=== PATIENT | female | born 1995 | race Caucasian/White ===

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

== ENCOUNTER 2017-02-23 | Emergency (ER) | payer MEDICAID, OTHER ==
[~2017-02-23] VITALS: Ht 170.2 cm; Wt 50.0 kg
[2017-02-23 00:08] VITALS: BP 135/89; PULSE 99; RESP 18; TEMP 98.2; O2SAT 98
[2017-02-23] MEDS ORDERED: DEPO150I IM (00:15)
--- NOTE | 2017-02-23 00:25 | PD ---
HPI Chief Complaint: Psychiatric Symptoms Time Seen by Provider: 00:17 Travel History International Travel<30 days: No Contact w/Intl Traveler<30days: No Traveled to known affect area: No History of Present Illness HPI 21-year-old female was brought to the ED for psychiatric evaluation. Patient has history depression and suicidal. Patient was presented to [facility] in [facility]. Patient had blood tests, including CBC, CMP, UA, urine test, urine drug screen done at that facility. Patient was medically cleared for psychiatric evaluation. Patient was transferred to [facility] ED to see psychiatric screener. Patient has abrasions to both forearms from suicidal gestures. Patient otherwise had no complaint. [facility] Past Medical History Medical History: Denies Significant Hx Diminished Hearing: No Immunizations Current: No Tetanus Vaccination: < 5 Years Influenza Vaccination: Yes ?: Not Past Surgical History Surgical History: No Previous Surgery Social History Alcohol Use: Yes (3 beers and three shots last night) Tobacco Use: No Substance Use: Yes Allergies-Medications (Allergen,Severity, Reaction): Coded Allergies: No Known Allergies (Unverified , 02/23/17) Reported Meds & Prescriptions Reported Meds & Active Scripts Active Reported Depo-Provera Inj (Medroxyprogesterone Inj) 150 Mg/Ml Inj 150 Mg IM Q90D Review of Systems General / Constitutional: No: Fever Eyes: No: Visual changes HENT: No: Headaches Cardiovascular: No: Chest Pain or Discomfort Respiratory: No: Shortness of Breath Gastrointestinal: No: Abdominal Pain Genitourinary: No: Dysuria Musculoskeletal: No: Pain Skin: No Rash Neurologic: No: Weakness Psychiatric: No: Depression Endocrine: No: Polydipsia Hematologic/Lymphatic: No: Easy Bruising Physical Exam Narrative GENERAL: Well-nourished, well-developed patient. SKIN: Focused skin assessment warm/dry. HEAD: Normocephalic. EYES: No scleral icterus. No injection or drainage. NECK: Supple, trachea midline. No JVD or lymphadenopathy. CARDIOVASCULAR: Regular rate and rhythm without murmurs, gallops, or rubs. RESPIRATORY: Breath sounds equal bilaterally. No accessory muscle use. GASTROINTESTINAL: Abdomen soft, non-tender, nondistended. MUSCULOSKELETAL: No cyanosis, or edema. Multiple superficial abrasions to both forearms. No active bleeding. BACK: Nontender without obvious deformity. No CVA tenderness. Neurologic exam normal. Data Data Last Documented VS Vital Signs Date Time Temp Pulse Resp B/P (MAP) Pulse Ox O2 Delivery O2 Flow Rate FiO2 02/23/17 00:08 98.2 99 18 135/89 (104) 98 Orders Orders Psych Screen (02/23/17 00:17) MDM Medical Decision Making Medical Screen Exam Complete: Yes Emergency Medical Condition: Yes Differential Diagnosis Differential diagnosis including depression, suicidal. Narrative Course 21-year-old female with depression and suicidal gestures. Patient was medically cleared at [facility] and sent to [facility] for psychiatric evaluation. Chan Morales MD Feb 23, 2017 00:25
[2017-02-23 07:10] VITALS: BP 107/71; PULSE 83; RESP 17; TEMP 97.8; O2SAT 99
[2017-02-23 11:00] VITALS: BP 124/81; PULSE 76; RESP 16; TEMP 97.8; O2SAT 100
--- NOTE | 2017-02-23 15:22 | PD ---
History of Present Illness Chief Complaint: Psychiatric Symptoms Time Seen by Provider: 15:00 Travel History International Travel<30 Days: No Contact w/Intl Traveler<30days: No Known affected area: No Legal Status Legal Status: Jimenez Act History of Present Illness: 21-year-old female transferred to this facility for suicidal ideation and recent history of cutting self. Patient seen at bedside with nurse Lilibeth. She is currently denying any suicidal or homicidal ideation, plan or intent. She is verbally artemio for safety. She does abuse drugs and admits to same. She would like outpatient follow up and is willing to obtain it with assistance from her grandmother. She lives with her grandmother and she is able to return there. She has no psychotic symptoms and her cognition is intact. She is verbally artemio for safety and she is competent to do so. [facility] Past Medical History Medical History: Denies Significant Hx Diminished Hearing: No Immunizations Current: No Tetanus Vaccination: < 5 Years Influenza Vaccination: Yes ?: Not Past Surgical History Surgical History: No Previous Surgery Psychiatric History Psychiatric History Hx Psychiatric Treatment: None History of Inpatient Treatment: No Guns or firearms in home: No Social History Hx Alcohol Use: Yes (3 beers and three shots last night) Hx Tobacco Use: No Hx Substance Use: Yes Substance Use Type: Alcohol Hx of Substance Use Treatment: No Allergies-Medications (Allergen,Severity, Reaction): Coded Allergies: No Known Allergies (Unverified , 02/23/17) Reported Meds & Prescriptions Reported Meds & Active Scripts Active Reported Depo-Provera Inj (Medroxyprogesterone Inj) 150 Mg/Ml Inj 150 Mg IM Q90D Review of Systems Except as stated in HPI: all other systems reviewed are Neg Exam Alert: Yes [place]: Person, Place, Date, Situation Mood: Calm Affect: Appropriate, Euthymic Speech: Clear, Logical Eye Contact: Normal Memory Intact: Immediate, Recent, Remote Insight/Judgement Adequate MDM Medical Decision Making Medical Record Reviewed: Yes Assessment/Plan Record reviewed, case discussed with nurse and patient seen at bedside. This physician feels patient likely has strong elements of a personality disorder. She is therefore prone to acting out and may do so in the future and harmful ways. However this cannot be predicted or avoided if she chooses to do so. This physician referred her for treatment at [facility] and encouraged her to speak to her grandmother regarding such treatment. As the patient does not meet a correct criteria or involuntary psychiatric hospitalization criteria at this time, she was discharged. Again, she is verbally artemio for safety and she is competent to do so. Orders Orders Psych Screen (02/23/17 00:17) Diet Regular Basic (02/23/17 Breakfast) Results Vital Signs Date Time Temp Pulse Resp B/P (MAP) Pulse Ox O2 Delivery O2 Flow Rate FiO2 02/23/17 11:00 97.8 76 16 124/81 (95) 100 Room Air 02/23/17 07:10 97.8 83 17 107/71 (83) 99 Room Air 02/23/17 07:10 72 16 02/23/17 00:08 98.2 99 18 135/89 (104) 98 Diagnosis Primary Impression: Adjustment disorder with mixed disturbance of emotions and conduct Additional Impression: Cocaine abuse Problem Qualifiers Stuart Mackay MD Feb 23, 2017 15:22
[2017-02-23 15:58] VITALS: BP 110/78; TEMP 97.8
[2017-02-23] MEDS ORDERED: DIAZ5 PO (16:44)
[2017-02-23] MEDS ORDERED: FLUO20CA12 PO (16:44)
== END 2017-02-23 16:49 | disposition home or self-care (01) ==
LOC: NEPE
DX: F43.25 Adjustment disorder with mixed disturbance of emotions and conduct (principal); F14.10 Cocaine abuse, uncomplicated
CPT/HCPCS: 99284

== ENCOUNTER 2017-03-02 12:38 | Observation (INO) | payer MEDICAID, OTHER ==
[~2017-03-02] VITALS: Ht 167.6 cm; Wt 52.0 kg
[2017-03-02] VITALS (7 sets, daily range): BP systolic 92–151; BP diastolic 53–95; PULSE 72–98; RESP 16–20; TEMP 97.7–99.2; O2SAT 96–100
[~2017-03-02 12:38] MED LIST: DEPO150I IM; DIAZ5 PO; FLUO20CA12 PO
--- NOTE | 2017-03-02 12:51 | PD ---
HPI Chief Complaint: Seizure Time Seen by Provider: 12:51 Travel History International Travel<30 days: No Contact w/Intl Traveler<30days: No Traveled to known affect area: No History of Present Illness HPI 21-year-old female presents to emergency Department with reported seizure last evening which lasted reportedly approximate 5 minutes. At that time the patient was at a friend's house, and was then taken to her father's house. She is brought in today by her grandmother. Current complaints include headache, neck pain, but she does not remember the event. She denies fever, chills, or other symptoms. Patient admits that she was abusing Xanax up until one week ago. Patient was seen here a week ago as a Jimenez act for cutting behavior. At that time she was found to have amphetamines in her bloodstream. Patient relates a history of syncope versus seizure in the past approximate year ago, and states she was seen by a neurologist and had an EEG showing no seizure like activity, but was told it was "in her heart". Patient has no previous EKG on file here at [facility]. She currently is otherwise apparently stable. Patient denies or recent drug use. She states her headache pain as a 9 out of 10. She has no known drug allergies. PFSH Past Medical History Diminished Hearing: No Immunizations Current: No Social History Alcohol Use: Yes (3 beers and three shots last night) Tobacco Use: No Substance Use: Yes Allergies-Medications (Allergen,Severity, Reaction): Coded Allergies: No Known Allergies (Unverified , 03/02/17) Reported Meds & Prescriptions Reported Meds & Active Scripts Active Valium (Diazepam) 5 Mg Tab 5 Mg PO HS PRN Fluoxetine (Fluoxetine HCl) 20 Mg Capsule 20 Mg PO DAILY Reported Depo-Provera Inj (Medroxyprogesterone Inj) 150 Mg/Ml Inj 150 Mg IM Q90D Review of Systems Except as stated in HPI: all other systems reviewed are Neg General / Constitutional: No: Fever Eyes: No: Visual changes HENT: Positive: Headaches, No: Vertigo, Lightheadedness, Sore Throat, Rhinitis , Rhinorrhea, Congestion, Nosebleed, Neck Stiffness, Neck Pain, Ear Discharge, Earache Cardiovascular: No: Chest Pain or Discomfort Respiratory: No: Cough, Shortness of Breath, Wheezing Gastrointestinal: No: Nausea, Vomiting, Diarrhea, Abdominal Pain Genitourinary: No: Dysuria Musculoskeletal: No: Pain Skin: Positive Other (patient is noted to have multiple healing cut gary to both wrists. They are not acute.), No Rash Neurologic: Positive: Syncope, Headache, Seizures (see history of present illness.), No: Weakness Psychiatric: No: Depression Endocrine: No: Polydipsia Hematologic/Lymphatic: No: Easy Bruising Physical Exam Narrative GENERAL: Patient appears somewhat postictal, but is able to answer questions appropriately. She is alert and oriented 3. SKIN: Warm and dry. Normal color. Normal turgor. No obvious signs of acute trauma. Patient has healing superficial lacerations to both wrists. These are not acute. HEAD: Atraumatic. Normocephalic. No point tenderness. Patient complains of generalized headache. EYES: Pupils equal and round and reactive. No scleral icterus. No injection or drainage. Ocular motions are equal bilaterally. ENT: No nasal bleeding or discharge. Mucous membranes pink and moist. Pharynx is clear. Airway is patent. No signs of dental injury or buccal membrane or tongue injury. NECK: Trachea midline. No obvious bony tenderness or step-off. Patient has generalized soft tissue tenderness of the cervical spine. She is uncomfortable moving the cervical spine to return range of motion. CARDIOVASCULAR: Regular rate and rhythm. RESPIRATORY: No accessory muscle use. Clear to auscultation. Breath sounds equal bilaterally. GASTROINTESTINAL: Abdomen soft, non-tender, nondistended. Hepatic and splenic margins not palpable. MUSCULOSKELETAL: Extremities without clubbing, cyanosis, or edema. No obvious deformities. NEUROLOGICAL: Awake and alert. No obvious cranial nerve deficits. Motor grossly within normal limits. Five out of 5 muscle strength in the arms and legs. Normal speech. PSYCHIATRIC: Appropriate mood and affect; insight and judgment normal. Data Data Last Documented VS Vital Signs Date Time Temp Pulse Resp B/P (MAP) Pulse Ox O2 Delivery O2 Flow Rate FiO2 03/02/17 13:02 100 Room Air 03/02/17 12:42 97.7 98 17 Orders Orders Complete Blood Count With Diff (03/02/17 12:58) Alcohol (Ethanol) (03/02/17 12:58) Drug Screen, Random Urine (03/02/17 12:58) Electrocardiogram (03/02/17 ) Ct Brain W/O Iv Contrast(Rout) (03/02/17 ) Ecg Monitoring (03/02/17 12:58) Iv Access Insert/Monitor (03/02/17 12:58) Oximetry (03/02/17 12:58) Comprehensive Metabolic Panel (03/02/17 12:58) Sodium Chlor 0.9% 1000 Ml Inj (Ns 1000 M (03/02/17 12:58) Sodium Chloride 0.9% Flush (Ns Flush) (03/02/17 13:00) Urinalysis - C+S If Indicated (03/02/17 12:58) Ed Urine Pregnancytest Poc (03/02/17 12:58) Ct Cerv Spine W/O Contrast (03/02/17 12:58) Urine Culture (03/02/17 13:30) Ceftriaxone Inj (Rocephin Inj) (03/02/17 14:15) Labs Laboratory Tests Test 03/02/17 13:02 03/02/17 13:30 White Blood Count 5.3 TH/MM3 Red Blood Count 5.51 MIL/MM3 Hemoglobin 15.9 GM/DL Hematocrit 48.4 % Mean Corpuscular Volume 87.9 FL Mean Corpuscular Hemoglobin 28.8 PG Mean Corpuscular Hemoglobin Concent 32.8 % Red Cell Distribution Width 13.8 % Platelet Count 253 TH/MM3 Mean Platelet Volume 7.3 FL Neutrophils (%) (Auto) 47.1 % Lymphocytes (%) (Auto) 41.6 % Monocytes (%) (Auto) 9.7 % Eosinophils (%) (Auto) 0.9 % Basophils (%) (Auto) 0.7 % Neutrophils # (Auto) 2.5 TH/MM3 Lymphocytes # (Auto) 2.2 TH/MM3 Monocytes # (Auto) 0.5 TH/MM3 Eosinophils # (Auto) 0.0 TH/MM3 Basophils # (Auto) 0.0 TH/MM3 CBC Comment DIFF FINAL Differential Comment Blood Urea Nitrogen 9 MG/DL Creatinine 0.91 MG/DL Random Glucose 64 MG/DL Total Protein 8.1 GM/DL Albumin 4.2 GM/DL Calcium Level 8.8 MG/DL Alkaline Phosphatase 100 U/L Aspartate Amino Transf (AST/SGOT) 19 U/L Alanine Aminotransferase (ALT/SGPT) 19 U/L Total Bilirubin 0.3 MG/DL Sodium Level 141 MEQ/L Potassium Level 3.9 MEQ/L Chloride Level 109 MEQ/L Carbon Dioxide Level 22.8 MEQ/L Anion Gap 9 MEQ/L Estimat Glomerular Filtration Rate 80 ML/MIN Ethyl Alcohol Level 53 MG/DL Urine Color YELLOW Urine Turbidity HAZY Urine pH 6.0 Urine Specific [place] 1.029 Urine Protein 30 mg/dL Urine Glucose (UA) NEG mg/dL Urine Ketones TRACE mg/dL Urine Occult Blood SMALL Urine Nitrite NEG Urine Bilirubin NEG Urine Urobilinogen 2.0 MG/DL Urine Leukocyte Esterase MOD Urine RBC 1 /hpf Urine WBC 56 /hpf Urine Squamous Epithelial Cells 3 /hpf Urine Bacteria MANY /hpf Urine Mucus MANY /lpf Microscopic Urinalysis Comment CULTURE INDICATED Urine Opiates Screen NEG Urine Barbiturates Screen NEG Urine Amphetamines Screen NEG Urine Benzodiazepines Screen POS Urine Cocaine Screen NEG Urine Cannabinoids Screen POS MDM Medical Decision Making Medical Screen Exam Complete: Yes Emergency Medical Condition: Yes Differential Diagnosis Syncopal episode versus seizure. History of benzodiazepine abuse. Question cardiac arrhythmia issue. History adjustment disorder with anxiety. Possible drug abuse. Possible . Narrative Course Patient appears medically stable at time of exam. Labs ordered including CBC, CMP, urine drug screen, urine , urinalysis. CT of the head and neck are ordered. Patient is given thousand mL normal saline. EKG is ordered showing a rate of 89 beats per minute with what appears to be a junctional rhythm. Dr. 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 Patient's old EEG from [facility] is obtained showing no signs of seizure disorder at that time. CBC shows a hemoglobin of 15.9, hematocrit of 48.4. Urine tox screen is positive for benzodiazepines as well as cannabinoids. Serum alcohol is 53. Urinalysis is suggestive of urinary tract infection. Patient is given [address] of the head shows no acute process. CMP is unremarkable except for a chloride of 109, GFR 80, random glucose 64. EEG study from October 05, 2015 is obtained from [facility] showing a normal EEG without epileptiform abnormalities. Patient is discussed with Dr. Calderón's, and she recommends hospitalization to determine if the patient does indeed have WPW arrhythmias causing syncope. 1455 hrs. call was placed to the hospitalist for admission. Diagnosis Primary Impression: Cardiac arrhythmia Qualified Codes: I47.0 - Re-entry ventricular arrhythmia Additional Impression: Syncopal episodes Qualified Codes: R55 - Syncope and collapse Admitting Information Admitting Physician Requests: Admit Condition: Stable Jeovanny Merrill Mar 02, 2017 12:51
[2017-03-02] MEDS ORDERED: SODIUM CHLOR 0.9% 1000 ML INJ 1,000 ML IV ONE (12:58)
[2017-03-02] MEDS ORDERED: SODIUM CHLORIDE 0.9% FLUSH 10 ML FLUSH IVF PRN (13:00)
[2017-03-02 13:54] LABS: AUTOMATED NEUTROPHIL # 2.5 TH/MM3 (1.8-7.7); BASOPHIL % 0.7 % (0.0-2.0); EOSINOPHIL % 0.9 % (0.0-4.0); HEMATOCRIT 48.4 % (35.0-46.0); HEMO FLAGS DIFF FINAL; LYMPH % 41.6 % (9.0-44.0); LYMPHOCYTE # 2.2 TH/MM3 (1.0-4.8); MEAN CELL VOLUME 87.9 FL (80.0-100.0); MEAN CORPUSCULAR HEMOGLOBIN 28.8 PG (27.0-34.0); MEAN CORPUSCULAR HGB CONC 32.8 % (32.0-36.0); MONO % 9.7 % (0.0-8.0); NEUT % 47.1 % (16.0-70.0); PLATELET COUNT 253 TH/MM3 (150-450); RED BLOOD COUNT 5.51 MIL/MM3 (4.00-5.30); RED CELL DISTRIBUTION WIDTH 13.8 % (11.6-17.2); WHITE BLOOD COUNT 5.3 TH/MM3 (4.0-11.0)
[2017-03-02 14:07] LABS: BACTERIA, URINE MANY /hpf; BLOOD, URINE SMALL (NEG); COMMENT (UR) CULTURE INDICATED; CULTURE IF INDICATED CULTURE INDICATED; GLUCOSE,URINE NEG (NEG); KETONE, URINE TRACE mg/dL (NEG); MUCUS URINE MANY /lpf (OCC); NITRITE,URINE NEG (NEG); SQUAMOUS EPITHELIAL CELL URINE 3 /hpf (0-5); URINE COLOR YELLOW (YELLW/STRAW)
--- NOTE | 2017-03-02 14:13 | RADRPT ---
EXAM DATE/TIME: 03/02/2017 13:50 [facility] COMPARISON: No previous studies available for comparison. INDICATIONS : Trauma; seizure. RADIATION DOSE: 42.23 CTDIvol (mGy) MEDICAL HISTORY : Seizures. SURGICAL HISTORY : None. ENCOUNTER: Initial ACUITY: 1 day PAIN SCALE: 5/10 LOCATION: cranial TECHNIQUE: Multiple contiguous axial images were obtained of the head. Using automated exposure control and adj ustment of the mA and/or kV according to patient size, radiation dose was kept as low as reasonably a chievable to obtain optimal diagnostic quality images. DICOM format image data is available electro nically for review and comparison. FINDINGS: CEREBRUM: The ventricles are normal for age. No evidence of midline shift, mass lesion, hemorrhage or acute in farction. No extra-axial fluid collections are seen. POSTERIOR FOSSA: The cerebellum and brainstem are intact. The 4th ventricle is midline. The cerebellopontine angle i s unremarkable. EXTRACRANIAL: The visualized portion of the orbits is intact. SKULL: The calvaria is intact. No evidence of skull fracture. CONCLUSION: Negative for acute process. Shantanu Coombs MD FACR on March 02, 2017 at 14:09 Board Certified Radiologist. This report was verified electronically.
[2017-03-02] MEDS ORDERED: cefTRIAXone INJ 1,000 MG in SODIUM CHLORIDE 0.9% INJ 100 ML IV ONE (14:15)
--- NOTE | 2017-03-02 14:15 | RADRPT ---
EXAM DATE/TIME: 03/02/2017 13:50 [facility] COMPARISON: No previous studies available for comparison. INDICATIONS : Trauma; seizure. RADIATION DOSE: 26.05 CTDIvol (mGy) MEDICAL HISTORY : Seizures. SURGICAL HISTORY : None. ENCOUNTER: Initial ACUITY: 1 day PAIN SCALE: 5/10 LOCATION: Bilateral neck TECHNIQUE: Volumetric scanning of the cervical spine was performed. Multiplanar reconstructions in the sagittal, coronal and oblique axial planes were performed. Using automated exposure control and adjustment o f the mA and/or kV according to patient size, radiation dose was kept as low as reasonably achievable to obtain optimal diagnostic quality images. DICOM format image data is available electronically f or review and comparison. FINDINGS: VERTEBRAE: Normal vertebral body height. ALIGNMENT: Reversal of the normal lordosis. C2-C3: The bony spinal canal is normal in size. No evidence of disc bulge or herniation. The neural forami na are bilaterally patent. C3-C4: The bony spinal canal is normal in size. No evidence of disc bulge or herniation. The neural forami na are bilaterally patent. C4-C5: The bony spinal canal is normal in size. No evidence of disc bulge or herniation. The neural forami na are bilaterally patent. C5-C6: The bony spinal canal is normal in size. Minimal central to right-sided bulge.. The neural foramina are bilaterally patent. C6-C7: The bony spinal canal is normal in size. No evidence of disc bulge or herniation. The neural forami na are bilaterally patent. C7-T1: The bony spinal canal is normal in size. No evidence of disc bulge or herniation. The neural forami na are bilaterally patent. CONCLUSION: Reversal of the normal lordosis without fracture. Minimal right-sided bulge at C5-C6. Shantanu Coombs MD FACR on March 02, 2017 at 14:12 Board Certified Radiologist. This report was verified electronically.
[2017-03-02 14:24] LABS: ANION GAP 9 MEQ/L (5-15); AST (GOT) 19 U/L (16-38); BICARBONATE 22.8 MEQ/L (21.0-32.0); BLOOD UREA NITROGEN 9 MG/DL (7-18); CHLORIDE 109 MEQ/L (98-107); GLOMERULAR FILTRATION RATE 80 ML/MIN (>89); POTASSIUM 3.9 MEQ/L (3.5-5.1); SODIUM (NA) 141 MEQ/L (136-145)
[2017-03-02 14:25] LABS: ALT (GPT) 19 U/L (9-42)
[2017-03-02 14:26] LABS: ALCOHOL 53 MG/DL (0-5)
[2017-03-02 14:28] LABS: ALKALINE PHOSPHATASE 100 U/L (45-117); TOTAL BILIRUBIN ADULT 0.3 MG/DL (0.2-1.0)
[2017-03-02] MEDS ORDERED: ACETAMINOPHEN 325 MG TAB PO PRN ×2 (15:45)
[2017-03-02] MEDS ORDERED: SODIUM CHLORIDE 0.9% FLUSH 10 ML FLUSH IV FLUSH PRN (15:45)
[2017-03-02] MEDS ORDERED: HALOPERIDOL LACTATE 5 MG/ML AMP IM PRN (15:45)
[2017-03-02] MEDS ORDERED: ONDANSETRON HCL 4 MG/2 ML VIAL IVP PRN (15:45)
[2017-03-02] MEDS ORDERED: FLUMAZENIL 0.5 MG/5 ML VIAL IV PUSH PRN (15:45)
[2017-03-02] MEDS ORDERED: traMADol HCL 50 MG TAB PO PRN ×2 (15:45)
[2017-03-02] MEDS ORDERED: LORazepam 1 MG TAB PO PRN (15:45)
[2017-03-02] MEDS ORDERED: MORPHINE SULFATE 4 MG/ML INJ IV PRN (15:45)
[2017-03-02] MEDS ORDERED: LORazepam 2 MG/ML VIAL IV PUSH PRN ×4 (15:45)
[2017-03-02] MEDS ORDERED: LACTULOSE SYRUP 20 GM/30 ML CUP PO PRN (15:45)
[2017-03-02] MEDS ORDERED: DIAZEPAM 5 MG TAB PO PRN (15:45)
[2017-03-02] MEDS ORDERED: BISACODYL 10 MG SUPP RECTAL PRN (15:45)
[2017-03-02] MEDS ORDERED: PROCHLORPERAZINE 25 MG SUPP RECTAL PRN (15:45)
[2017-03-02] MEDS ORDERED: SENNOSIDES 8.6 MG TAB PO PRN (15:45)
[2017-03-02] MEDS ORDERED: LORazepam 2 MG TAB PO PRN (15:45)
[2017-03-02] MEDS ORDERED: NALOXONE HCL 0.4 MG/ML AMP IV PRN (15:45)
[2017-03-02] MEDS ORDERED: MAGNESIUM HYDROXIDE SUSP 30 ML CUP PO PRN (15:45)
[2017-03-02 16:04] LABS: CREATINE KINASE 116 U/L (26-192)
--- NOTE | 2017-03-02 16:05 | HHI.HP ---
[facility] Service [facility] Hospitalists Primary Care Physician No Primary Care Physician Admission Diagnosis Dysrythmia/syncope Diagnoses: (1) Drug abuse Diagnosis: Principal (2) Syncopal episodes Diagnosis: Principal (3) Cardiac arrhythmia Diagnosis: Principal (4) Adjustment disorder with anxiety Diagnosis: Secondary (5) Depression Diagnosis: Secondary (6) Seizure Diagnosis: Principal Chief Complaint: POSSIBLE SEIZURE VS SYNCOPAL EPISODE Travel History International Travel<30 Days: No Contact w/Intl Traveler <30 Da: No Traveled to Known Affected Are: No History of Present Illness 21-year-old female presents to emergency Department with reported seizure last evening which lasted reportedly approximate 5 minutes. At that time the patient was at a friend's house, and was then taken to her father's house. She is brought in today by her grandmother. Current complaints include headache, neck pain, but she does not remember the event. She denies fever, chills, or other symptoms. Patient admits that she was abusing Xanax up until one week ago. Patient was seen here a week ago as a Jimenez act for cutting behavior. At that time she was found to have amphetamines in her bloodstream. Patient relates a history of syncope versus seizure in the past approximate year ago, and states she was seen by a neurologist and had an EEG showing no seizure like activity, but was told it was "in her heart". Patient has no previous EKG on file here at [facility]. She currently is otherwise apparently stable. Patient denies or recent drug use. She states her headache pain as a 9 out of 10. She has no known drug allergies. Review of Systems Constitutional: DENIES: Diaphoretic episodes, Fatigue, Fever, Weight gain, Weight loss, Chills, Dizziness, Change in appetite Endocrine: DENIES: Abnorml menstrual pattern, Heat/cold intolerance Eyes: DENIES: Blurred vision, Diplopia, Eye inflammation, Eye pain, Vision loss , Photosensitivity Ears, nose, mouth, throat: DENIES: Tinnitus, Hearing loss, Vertigo, Nasal discharge, Oral lesions, Throat pain, Hoarseness Respiratory: DENIES: Apneas, Cough, Snoring, Wheezing, Hemoptysis Cardiovascular: COMPLAINS OF: Syncope, DENIES: Chest pain, Palpitations Gastrointestinal: DENIES: Abdominal pain, Black stools, Bloody stools, Constipation Genitourinary: DENIES: Abnormal vaginal bleeding, Dysmenorrhea, Dyspareunia, Sexual dysfunction, Vaginal discharge Musculoskeletal: DENIES: Joint pain, Muscle aches, Stiffness, Joint Swelling Integumentary: DENIES: Abnormal pigmentation, Pruritus, Rash Hematologic/lymphatic: DENIES: Bruising, Lymphadenopathy Immunologic/allergic: DENIES: Eczema, Urticaria Neurologic: COMPLAINS OF: Seizures, DENIES: Abnormal gait, Headache, Localized weakness, Paresthesias, Speech Problems Psychiatric: COMPLAINS OF: Anxiety, Mood changes, Depression, DENIES: Confusion , Hallucinations, Agitation, Suicidal Ideation Past Family Social History Past Medical History Possible seizures Possible syncope Drug abuse Depression Suicidal ideation/attempt Headaches Anxiety Past Surgical History Denies Reported Medications Reported Meds & Active Scripts Active Valium (Diazepam) 5 Mg Tab 5 Mg PO HS PRN Fluoxetine (Fluoxetine HCl) 20 Mg Capsule 20 Mg PO DAILY Reported Depo-Provera Inj (Medroxyprogesterone Inj) 150 Mg/Ml Inj 150 Mg IM Q90D Allergies: Coded Allergies: No Known Allergies (Unverified , 03/02/17) Active Ordered Medications Current Medications Sodium Chloride 1,000 ml @ 1,000 mls/hr Q1H ONCE IV Last administered on 13:14; Start 03/02/17 at 12:58; Stop 03/02/17 at 13:57; Status DC Sodium Chloride (NS Flush) 2 ml UNSCH PRN IVF FLUSH AFTER USING IV ACCESS; Start 03/02/17 at 13:00; Stop 03/02/17 at 15:51; Status DC Ceftriaxone Sodium 1000 mg/ Sodium Chloride 100 ml @ 200 mls/hr ONCE ONCE IV Last administered on 03/02/17 14:28; Start 03/02/17 at 14:15; Stop 03/02/17 at 14: 44; Status DC Sodium Chloride 1,000 ml @ 100 mls/hr Q10H IV ; Start 03/02/17 at 15:33 Sodium Chloride (NS Flush) 2 ml UNSCH PRN IV FLUSH FLUSH AFTER USING IV ACCESS ; Start 03/02/17 at 15:45 Sodium Chloride (NS Flush) 2 ml BID IV FLUSH ; Start 03/02/17 at 21:00 Acetaminophen (Tylenol) 650 mg Q4H PRN PO TEMP > 100.4; Start 03/02/17 at 15:45 Ondansetron HCl (Zofran Inj) 4 mg Q6H PRN IVP NAUSEA OR VOMITING; Start at 15:45 Prochlorperazine (Compazine Supp) 25 mg Q12H PRN RECTAL NAUSEA OR VOMITING; Start 03/02/17 at 15:45 Heparin Sodium (Porcine) (Heparin Inj) 5,000 units Q12H SQ ; Start 03/02/17 at 17 :00 Acetaminophen (Tylenol) 650 mg Q6H PRN PO PAIN SCALE 1 TO 2; Start 03/02/17 at 15:45 Morphine Sulfate (Morphine Inj) 4 mg Q3H PRN IV Pain 6-10;if unable to take PO ; Start 03/02/17 at 15:45 Tramadol HCl (Ultram) 50 mg Q4H PRN PO PAIN SCALE 3 TO 5; Start 03/02/17 at 15: 45 Tramadol HCl (Ultram) 100 mg Q4H PRN PO PAIN SCALE 6 TO 10; Start 03/02/17 at 15 :45 Naloxone HCl (Narcan Inj) 0.4 mg UNSCH PRN IV SEE LABEL COMMENTS; Start at 15:45 Senna/Docusate Sodium (Glenis-Colace) 1 tab BID PO ; Start 03/02/17 at 21:00 Magnesium Hydroxide (Milk Of Magnesia Liq) 30 ml Q12H PRN PO MILD - MODERATE CONSTIPATION; Start 03/02/17 at 15:45 Sennosides (Senokot) 17.2 mg Q12H PRN PO MODERATE - SEVERE CONSTIPATION; Start 03/02/17 at 15:45 Bisacodyl (Dulcolax Supp) 10 mg DAILY PRN RECTAL SEVERE CONSITIPATION; Start at 15:45 Lactulose (Lactulose Liq) 30 ml DAILY PRN PO SEVERE CONSITIPATION; Start at 15:45 Flumazenil (Romazicon Inj) 0.2 mg Q1M PRN IV PUSH SEE LABEL COMMENTS; Start 03/02/17 at 15:45 Lorazepam (Ativan) 1 mg Q4H PRN PO CIWA 8 - 10; Start 03/02/17 at 15:45 Lorazepam (Ativan Inj) 1 mg Q4H PRN IV PUSH CIWA 8 - 10; Start 03/02/17 at 15:45 Lorazepam (Ativan) 2 mg Q2H PRN PO CIWA 11-14; Start 03/02/17 at 15:45 Lorazepam (Ativan Inj) 2 mg Q2H PRN IV PUSH CIWA 11-14; Start 03/02/17 at 15:45 Lorazepam (Ativan Inj) 2 mg Q1H PRN IV PUSH CIWA 15-20; Start 03/02/17 at 15:45 Lorazepam (Ativan Inj) 2 mg Q15M PRN IV PUSH CIWA > 20; Start 03/02/17 at 15:45 Haloperidol Lactate (Haldol Inj) 2 mg Q15M PRN IM SEE LABEL COMMENTS; Start 03/02/17 at 15:45 Diazepam (Valium) 5 mg HS PRN PO ANXIETY; Start 03/02/17 at 15:45 Fluoxetine HCl (PROzac) 20 mg DAILY PO ; Start 03/03/17 at 09:00 Family History Not significant except for depression anxiety Social History Smokes Does illicit drugs Alcohol abuse Physical Exam Vital Signs Vital Signs Date Time Temp Pulse Resp B/P (MAP) Pulse Ox O2 Delivery O2 Flow Rate FiO2 03/02/17 13:02 100 Room Air 03/02/17 12:42 97.7 98 17 151/95 (113) 99 Physical Exam GENERAL: This is a well-nourished, well-developed patient, in no apparent distress. SKIN: No rashes, ecchymoses or lesions. Cool and dry. HEAD: Atraumatic. Normocephalic. No temporal or scalp tenderness. EYES: Pupils equal round and reactive. Extraocular motions intact. No scleral icterus. No injection or drainage. ENT: Nose without bleeding, purulent drainage or septal hematoma. Throat without erythema, tonsillar hypertrophy or exudate. Uvula midline. Airway patent. Oral mucosa is moist tongue is midline NECK: Trachea midline. No JVD or lymphadenopathy. Supple, nontender, no meningeal signs. CARDIOVASCULAR: Regular rate and rhythm without murmurs, gallops, or rubs. S1 and S2 no S3 or S4 RESPIRATORY: Clear to auscultation. Breath sounds equal bilaterally. No wheezes , rales, or rhonchi. GASTROINTESTINAL: Abdomen soft, non-tender, nondistended. No hepato-splenomegaly , or palpable masses. No guarding. MUSCULOSKELETAL: Extremities without clubbing, cyanosis, or edema. No joint tenderness, effusion, or edema noted. No calf tenderness. Negative Homans sign bilaterally. NEUROLOGICAL: Awake and alert. Cranial nerves II through XII intact. Motor and sensory grossly within normal limits. Five out of 5 muscle strength in all muscle groups. Normal speech. Insight and judgment are okay, mood and behavior somewhat appropriate Laboratory Laboratory Tests Test 03/02/17 13:02 03/02/17 13:30 White Blood Count 5.3 Red Blood Count 5.51 Hemoglobin 15.9 Hematocrit 48.4 Mean Corpuscular Volume 87.9 Mean Corpuscular Hemoglobin 28.8 Mean Corpuscular Hemoglobin Concent 32.8 Red Cell Distribution Width 13.8 Platelet Count 253 Mean Platelet Volume 7.3 Neutrophils (%) (Auto) 47.1 Lymphocytes (%) (Auto) 41.6 Monocytes (%) (Auto) 9.7 Eosinophils (%) (Auto) 0.9 Basophils (%) (Auto) 0.7 Neutrophils # (Auto) 2.5 Lymphocytes # (Auto) 2.2 Monocytes # (Auto) 0.5 Eosinophils # (Auto) 0.0 Basophils # (Auto) 0.0 CBC Comment DIFF FINAL Differential Comment Blood Urea Nitrogen 9 Creatinine 0.91 Random Glucose 64 Total Protein 8.1 Albumin 4.2 Calcium Level 8.8 Alkaline Phosphatase 100 Aspartate Amino Transf (AST/SGOT) 19 Alanine Aminotransferase (ALT/SGPT) 19 Total Bilirubin 0.3 Sodium Level 141 Potassium Level 3.9 Chloride Level 109 Carbon Dioxide Level 22.8 Anion Gap 9 Estimat Glomerular Filtration Rate 80 Ethyl Alcohol Level 53 Urine Color YELLOW Urine Turbidity HAZY Urine pH 6.0 Urine Specific Fords 1.029 Urine Protein 30 Urine Glucose (UA) NEG Urine Ketones TRACE Urine Occult Blood SMALL Urine Nitrite NEG Urine Bilirubin NEG Urine Urobilinogen 2.0 Urine Leukocyte Esterase MOD Urine RBC 1 Urine WBC 56 Urine Squamous Epithelial Cells 3 Urine Bacteria MANY Urine Mucus MANY Microscopic Urinalysis Comment CULTURE INDICATED Urine Opiates Screen NEG Urine Barbiturates Screen NEG Urine Amphetamines Screen NEG Urine Benzodiazepines Screen POS Urine Cocaine Screen NEG Urine Cannabinoids Screen POS Date/Time Source Procedure Growth Status 9/3/17 13:30 Urine Clean Catch Urine Culture Pending Received Result Diagram: 03/02/17 1302 03/02/17 1302 Imaging Last Impressions Cervical Spine CT 03/02/17 1258 Signed Impressions: Service Date/Time: Thursday, March 02, 2017 13:50 - CONCLUSION: Reversal of the normal lordosis without fracture. Minimal right-sided bulge at C5-C6. Shantanu Coombs MD FACR Head CT 03/02/17 0000 Signed Impressions: Service Date/Time: Thursday, March 02, 2017 13:50 - CONCLUSION: Negative for acute process. Shantanu Coombs MD FACR Caprini VTE Risk Assessment Caprini VTE Risk Assessment: Mod/High Risk (score >= 2) Caprini Risk Assessment Model Point Value = 1 Point Value = 2 Point Value = 3 Point Value = 5 Age 41-60 Minor surgery BMI > 25 kg/m2 Swollen legs Varicose veins or History of unexplained or recurrent spontaneous Oral contraceptives or hormone replacement Sepsis (< 1 month) Serious lung disease, including pneumonia (< 1 month) Abnormal pulmonary function Acute myocardial infarction Congestive heart failure (< 1 month) History of inflammatory bowel disease Medical patient at bed rest Age 61-74 Arthroscopic surgery Major open surgery (> 45 min) Laparoscopic surgery (> 45 min) Malignancy Confined to bed (> 72 hours) Immobilizing plaster cast Central venous access Age >= 75 History of VTE Family history of VTE Factor V Leiden Prothrombin [id number] Lupus anticoagulant Anticardiolipin antibodies Elevated serum homocysteine Heparin-induced thrombocytopenia Other congenital or acquired thrombophilia Stroke (< 1 month) Elective arthroplasty Hip, pelvis, or leg fracture Acute spinal cord injury (< 1 month) Prophylaxis Regimen Total Risk Factor Score Risk Level Prophylaxis Regimen 0-1 Low Early ambulation 2 Moderate Order ONE of the following: *Sequential Compression Device (SCD) *Heparin 5000 units SQ BID 3-4 Higher Order ONE of the following medications: *Heparin 5000 units SQ TID *Enoxaparin/Lovenox 40 mg SQ daily (WT < 150 kg, CrCl > 30 mL/min) *Enoxaparin/Lovenox 30 mg SQ daily (WT < 150 kg, CrCl > 10-29 mL/min) *Enoxaparin/Lovenox 30 mg SQ BID (WT < 150 kg, CrCl > 30 mL/min) AND/OR *Sequential Compression Device (SCD) 5 or more Highest Order ONE of the following medications: *Heparin 5000 units SQ TID (Preferred with Epidurals) *Enoxaparin/Lovenox 40 mg SQ daily (WT < 150 kg, CrCl > 30 mL/min) *Enoxaparin/Lovenox 30 mg SQ daily (WT < 150 kg, CrCl > 10-29 mL/min) *Enoxaparin/Lovenox 30 mg SQ BID (WT < 150 kg, CrCl > 30 mL/min) AND *Sequential Compression Device (SCD) Assessment and Plan Problem List: (1) Seizure ICD Code: R56.9 - Unspecified convulsions (2) Adjustment disorder with anxiety ICD Code: F43.22 - Adjustment disorder with anxiety Status: Acute (3) Depression ICD Code: F32.9 - Major depressive disorder, single episode, unspecified Status: Acute (4) Drug abuse ICD Code: F19.10 - Other psychoactive substance abuse, uncomplicated (5) Syncopal episodes ICD Code: R55 - Syncope and collapse Status: Acute (6) Cardiac arrhythmia ICD Code: I49.9 - Cardiac arrhythmia, unspecified Status: Acute Assessment and Plan Possible seizure versus syncope For seizure Will order an EEG. His early had CAT scan of the head which is stable Or syncope Will has already had a CAT scan of the head will order an echocardiogram as well as carotid For abnormal heart rhythm will consult cardiology trend troponins and trend EKGs Drug abuse continue on CIWA protocol Pain control as needed Home anxiety medications We'll get a urinalysis and monitor her for her drug abuse and any signs of withdrawal Await cardiology input Continue on DVT and GI prophylaxis Discussed with patient and RN and grandmother Had a female shopping centre manager in room in all time of exam Code Status Full code Discussed Condition With Discussed with ER discussed with patient, discussed with grandmother and RN Problem Qualifiers (1) Syncopal episodes: Qualified Codes: R55 - Syncope and collapse (2) Cardiac arrhythmia: Qualified Codes: I47.0 - Re-entry ventricular arrhythmia Shantanu Littlejohn DO Mar 02, 2017 16:05
--- NOTE | 2017-03-02 16:45 | RADRPT ---
EXAM DATE/TIME: 03/02/2017 16:10 [facility] COMPARISON: No previous studies available for comparison. INDICATIONS : Syncope. MEDICAL HISTORY : Seizures. Syncope. Depression. Anxiety. SURGICAL HISTORY : None. ENCOUNTER: Initial ACUITY: 1 day PAIN SCORE: 0/10 LOCATION: Bilateral neck PEAK SYSTOLIC VELOCITIES (cm/sec): ICA/CCA RATIO: Right: 0.8 Left: 0.8 ICA: Right: 105 Left: 121 CCA: Right: 138 Left: 146 ECA: Right: 85 Left: 107 VERTEBRAL: Right: 50 antegrade Left: 55 antegrade Elevated flow velocities and ICA/CCA ratios have been found to correlate with increased degrees of vessel stenosis, calculated as percentage of diameter relative to a normal segment of distal ICA/CCA FINDINGS: RIGHT CAROTID: No significant stenosis is visualized. The waveforms are within normal limits. LEFT CAROTID: No significant stenosis is visualized. The waveforms are within normal limits. VERTEBRAL ARTERIES: Antegrade flow is seen in both vertebral arteries. MISCELLANEOUS: None. CONCLUSION: Unremarkable exam. Skyler Zabala MD on March 02, 2017 at 16:42 Board Certified Radiologist. This report was verified electronically.
[2017-03-02] MEDS: HEPARIN SODIUM - SQ 10,000 UNITS/ML VIAL SQ SCH (17:00)
[2017-03-02] MEDS: SODIUM CHLOR 0.9% 1000 ML INJ 1,000 ML IV SCH (17:15)
[2017-03-02] MEDS: DOCUSATE SODIUM 50 MG/SENNA 8.6 MG TAB PO SCH (21:00)
[2017-03-02] MEDS: SODIUM CHLORIDE 0.9% FLUSH 10 ML FLUSH IV FLUSH SCH (21:00)
[2017-03-02 21:29] LABS: CREATINE KINASE 101 U/L (26-192)
[2017-03-03] VITALS (13 sets, daily range): BP systolic 94–114; BP diastolic 63–73; PULSE 63–90; RESP 17–19; TEMP 98.3–98.8; O2SAT 95–100
[2017-03-03] MEDS: SODIUM CHLOR 0.9% 1000 ML INJ 1,000 ML IV SCH ×3 (03:13→20:26)
[2017-03-03] MEDS: HEPARIN SODIUM - SQ 10,000 UNITS/ML VIAL SQ SCH ×3 (04:45→17:07)
[2017-03-03 05:37] LABS: AUTOMATED NEUTROPHIL # 1.5 TH/MM3 (1.8-7.7); BASOPHIL % 0.7 % (0.0-2.0); EOSINOPHIL # 0.1 TH/MM3 (0-0.4); EOSINOPHIL % 2.4 % (0.0-4.0); HEMATOCRIT 39.4 % (35.0-46.0); HEMO FLAGS DIFF FINAL; LYMPH % 52.6 % (9.0-44.0); LYMPHOCYTE # 2.3 TH/MM3 (1.0-4.8); MEAN CORPUSCULAR HEMOGLOBIN 29.1 PG (27.0-34.0); MEAN CORPUSCULAR HGB CONC 33.5 % (32.0-36.0); MONO % 9.9 % (0.0-8.0); NEUT % 34.4 % (16.0-70.0); PLATELET COUNT 225 TH/MM3 (150-450); RED BLOOD COUNT 4.52 MIL/MM3 (4.00-5.30); RED CELL DISTRIBUTION WIDTH 13.9 % (11.6-17.2); WHITE BLOOD COUNT 4.4 TH/MM3 (4.0-11.0)
[2017-03-03 06:21] LABS: ALKALINE PHOSPHATASE 82 U/L (45-117); ALT (GPT) 14 U/L (9-42); ANION GAP 8 MEQ/L (5-15); AST (GOT) 10 U/L (16-38); BICARBONATE 22.5 MEQ/L (21.0-32.0); BLOOD UREA NITROGEN 9 MG/DL (7-18); CHLORIDE 107 MEQ/L (98-107); FREE T4 0.91 NG/DL (0.76-1.46); GLOMERULAR FILTRATION RATE 122 ML/MIN (>89); MAGNESIUM 1.8 MG/DL (1.5-2.5); POTASSIUM 3.6 MEQ/L (3.5-5.1); SODIUM (NA) 137 MEQ/L (136-145); TOTAL BILIRUBIN ADULT 0.4 MG/DL (0.2-1.0)
[2017-03-03 06:24] LABS: CREATINE KINASE 83 U/L (26-192)
[2017-03-03] MEDS: FLUoxetine HCL 20 MG CAP PO SCH (09:50)
[2017-03-03] MEDS: SODIUM CHLORIDE 0.9% FLUSH 10 ML FLUSH IV FLUSH SCH ×2 (09:50→20:26)
[2017-03-03] MEDS: DOCUSATE SODIUM 50 MG/SENNA 8.6 MG TAB PO SCH ×2 (09:51→20:26)
[2017-03-03 11:34] LABS: HEMOGLOBIN A1b 0.7 %; HEMOGLOBIN F 1.1 %; HEMOGLOBIN LA1C 1.8 %; HEMOGLOBIN P3 3.5 %
[2017-03-03] MEDS ORDERED: cefTRIAXone INJ 1,000 MG in SODIUM CHLORIDE 0.9% INJ 100 ML IV SCH (17:00)
--- NOTE | 2017-03-03 17:50 | HHI.PR ---
Subjective Remarks 21-year-old female presents to emergency Department with reported seizure last evening which lasted reportedly approximate 5 minutes. At that time the patient was at a friend's house, and was then taken to her father's house. She is brought in today by her grandmother. Current complaints include headache, neck pain, but she does not remember the event. She denies fever, chills, or other symptoms. Patient admits that she was abusing Xanax up until one week ago. Patient was seen here a week ago as a Jimenez act for cutting behavior. At that time she was found to have amphetamines in her bloodstream. Patient relates a history of syncope versus seizure in the past approximate year ago, and states she was seen by a neurologist and had an EEG showing no seizure like activity, but was told it was "in her heart". Patient has no previous EKG on file here at [facility]. She currently is otherwise apparently stable. Patient denies or recent drug use. She states her headache pain as a 9 out of 10. She has no known drug allergies. has hx of amphetamine use also- states it was in ectasy she took -4 NOT ABLE TO GET ECHO OR EEG DONE TODAY HAS BEEN SEEN BY CARDIOLOGY BUT CANNOT BE CLEARED BECAUSE ALL THE STUDIES ARE NOT BACK YET [facility] CARDIOLOGY AND RN AND PT HAS UTI ON ROCEPHIN AM LABS Objective Vitals Vital Signs Date Time Temp Pulse Resp B/P (MAP) Pulse Ox O2 Delivery O2 Flow Rate FiO2 03/03/17 15:41 98.7 78 17 94/63 (73) 100 03/03/17 11:44 98.8 67 19 114/71 (85) 98 03/03/17 08:05 95 21 03/03/17 08:03 98.7 73 19 111/68 (82) 100 03/03/17 04:00 72 03/03/17 01:27 21 03/03/17 00:00 84 03/02/17 23:20 98.2 72 16 115/71 (86) 99 03/02/17 20:00 96 03/02/17 19:21 99.2 94 18 92/53 (66) 98 I/O 03/02/17 03/02/17 03/02/17 03/03/17 03/03/17 03/03/17 07:00 15:00 23:00 07:00 15:00 23:00 Intake Total 1100 ml 703 ml Balance 1100 ml 703 ml Intake Oral 230 ml IV Total 1100 ml 473 ml # Voids 2 Result Diagram: 03/03/17 0523 03/03/17 0523 Other Results Laboratory Tests Test 03/02/17 13:02 03/02/17 13:30 03/02/17 20:45 03/03/17 05:23 White Blood Count 5.3 TH/MM3 4.4 TH/MM3 Red Blood Count 5.51 MIL/MM3 4.52 MIL/MM3 Hemoglobin 15.9 GM/DL 13.2 GM/DL Hematocrit 48.4 % 39.4 % Mean Corpuscular Volume 87.9 FL 87.0 FL Mean Corpuscular Hemoglobin 28.8 PG 29.1 PG Mean Corpuscular Hemoglobin Concent 32.8 % 33.5 % Red Cell Distribution Width 13.8 % 13.9 % Platelet Count 253 TH/MM3 225 TH/MM3 Mean Platelet Volume 7.3 FL 6.9 FL Neutrophils (%) (Auto) 47.1 % 34.4 % Lymphocytes (%) (Auto) 41.6 % 52.6 % Monocytes (%) (Auto) 9.7 % 9.9 % Eosinophils (%) (Auto) 0.9 % 2.4 % Basophils (%) (Auto) 0.7 % 0.7 % Neutrophils # (Auto) 2.5 TH/MM3 1.5 TH/MM3 Lymphocytes # (Auto) 2.2 TH/MM3 2.3 TH/MM3 Monocytes # (Auto) 0.5 TH/MM3 0.4 TH/MM3 Eosinophils # (Auto) 0.0 TH/MM3 0.1 TH/MM3 Basophils # (Auto) 0.0 TH/MM3 0.0 TH/MM3 CBC Comment DIFF FINAL DIFF FINAL Differential Comment Blood Urea Nitrogen 9 MG/DL 9 MG/DL Creatinine 0.91 MG/DL 0.63 MG/DL Random Glucose 64 MG/DL 74 MG/DL Total Protein 8.1 GM/DL 6.4 GM/DL Albumin 4.2 GM/DL 3.3 GM/DL Calcium Level 8.8 MG/DL 8.3 MG/DL Alkaline Phosphatase 100 U/L 82 U/L Aspartate Amino Transf (AST/SGOT) 19 U/L 10 U/L Alanine Aminotransferase (ALT/SGPT) 19 U/L 14 U/L Total Bilirubin 0.3 MG/DL 0.4 MG/DL Sodium Level 141 MEQ/L 137 MEQ/L Potassium Level 3.9 MEQ/L 3.6 MEQ/L Chloride Level 109 MEQ/L 107 MEQ/L Carbon Dioxide Level 22.8 MEQ/L 22.5 MEQ/L Anion Gap 9 MEQ/L 8 MEQ/L Estimat Glomerular Filtration Rate 80 ML/MIN 122 ML/MIN Total Creatine Kinase 116 U/L 101 U/L 83 U/L Troponin I LESS THAN 0.02 NG/ML LESS THAN 0.02 NG/ML LESS THAN 0.02 NG/ML Ethyl Alcohol Level 53 MG/DL Urine Color YELLOW Urine Turbidity HAZY Urine pH 6.0 Urine Specific [place] 1.029 Urine Protein 30 mg/dL Urine Glucose (UA) NEG mg/dL Urine Ketones TRACE mg/dL Urine Occult Blood SMALL Urine Nitrite NEG Urine Bilirubin NEG Urine Urobilinogen 2.0 MG/DL Urine Leukocyte Esterase MOD Urine RBC 1 /hpf Urine WBC 56 /hpf Urine Squamous Epithelial Cells 3 /hpf Urine Bacteria MANY /hpf Urine Mucus MANY /lpf Microscopic Urinalysis Comment CULTURE INDICATED Urine Opiates Screen NEG Urine Barbiturates Screen NEG Urine Amphetamines Screen NEG Urine Benzodiazepines Screen POS Urine Cocaine Screen NEG Urine Cannabinoids Screen POS Phosphorus Level 3.1 MG/DL Magnesium Level 1.8 MG/DL Hemoglobin A1c 5.3 % Free Thyroxine 0.91 NG/DL Thyroid Stimulating Hormone 3rd Gen 0.668 uIU/ML Imaging Last Impressions Cervical Spine CT 03/02/17 1258 Signed Impressions: Service Date/Time: Thursday, March 02, 2017 13:50 - CONCLUSION: Reversal of the normal lordosis without fracture. Minimal right-sided bulge at C5-C6. Shantanu Coombs MD FACR Head CT 03/02/17 0000 Signed Impressions: Service Date/Time: Thursday, March 02, 2017 13:50 - CONCLUSION: Negative for acute process. Shantanu Coombs MD FACR Carotid Artery Ultrasound 03/02/17 0000 Signed Impressions: Service Date/Time: Thursday, March 02, 2017 16:10 - CONCLUSION: Unremarkable exam. Skyler Zabala MD Objective Remarks GENERAL: This is a well-nourished, well-developed patient, in no apparent distress. SKIN: No rashes, ecchymoses or lesions. Cool and dry. HEAD: Atraumatic. Normocephalic. No temporal or scalp tenderness. EYES: Pupils equal round and reactive. Extraocular motions intact. No scleral icterus. No injection or drainage. ENT: Nose without bleeding, purulent drainage or septal hematoma. Throat without erythema, tonsillar hypertrophy or exudate. Uvula midline. Airway patent. Oral mucosa is moist tongue is midline NECK: Trachea midline. No JVD or lymphadenopathy. Supple, nontender, no meningeal signs. CARDIOVASCULAR: Regular rate and rhythm without murmurs, gallops, or rubs. S1 and S2 no S3 or S4 RESPIRATORY: Clear to auscultation. Breath sounds equal bilaterally. No wheezes , rales, or rhonchi. GASTROINTESTINAL: Abdomen soft, non-tender, nondistended. No hepato-splenomegaly , or palpable masses. No guarding. MUSCULOSKELETAL: Extremities without clubbing, cyanosis, or edema. No joint tenderness, effusion, or edema noted. No calf tenderness. Negative Homans sign bilaterally. NEUROLOGICAL: Awake and alert. Cranial nerves II through XII intact. Motor and sensory grossly within normal limits. Five out of 5 muscle strength in all muscle groups. Normal speech. Insight and judgment are okay, mood and behavior somewhat appropriate Medications and IVs Current Medications Sodium Chloride 1,000 ml @ 1,000 mls/hr Q1H ONCE IV Last administered on 13:14; Start 03/02/17 at 12:58; Stop 03/02/17 at 13:57; Status DC Sodium Chloride (NS Flush) 2 ml UNSCH PRN IVF FLUSH AFTER USING IV ACCESS; Start 03/02/17 at 13:00; Stop 03/02/17 at 15:51; Status DC Ceftriaxone Sodium 1000 mg/ Sodium Chloride 100 ml @ 200 mls/hr ONCE ONCE IV Last administered on 03/02/17 14:28; Start 03/02/17 at 14:15; Stop 03/02/17 at 14: 44; Status DC Sodium Chloride 1,000 ml @ 100 mls/hr Q10H IV Last administered on 03/03/17 17 :06; Start 03/02/17 at 15:33 Sodium Chloride (NS Flush) 2 ml UNSCH PRN IV FLUSH FLUSH AFTER USING IV ACCESS ; Start 03/02/17 at 15:45 Sodium Chloride (NS Flush) 2 ml BID IV FLUSH Last administered on 03/03/17 09: 50; Start 03/02/17 at 21:00 Acetaminophen (Tylenol) 650 mg Q4H PRN PO TEMP > 100.4; Start 03/02/17 at 15:45 Ondansetron HCl (Zofran Inj) 4 mg Q6H PRN IVP NAUSEA OR VOMITING; Start at 15:45 Prochlorperazine (Compazine Supp) 25 mg Q12H PRN RECTAL NAUSEA OR VOMITING; Start 03/02/17 at 15:45 Heparin Sodium (Porcine) (Heparin Inj) 5,000 units Q12H SQ ; Start 03/02/17 at 17 :00 Acetaminophen (Tylenol) 650 mg Q6H PRN PO PAIN SCALE 1 TO 2 Last administered on 03/03/17 10:39; Start 03/02/17 at 15:45 Morphine Sulfate (Morphine Inj) 4 mg Q3H PRN IV Pain 6-10;if unable to take PO ; Start 03/02/17 at 15:45 Tramadol HCl (Ultram) 50 mg Q4H PRN PO PAIN SCALE 3 TO 5 Last administered on 17:52; Start 03/02/17 at 15:45 Tramadol HCl (Ultram) 100 mg Q4H PRN PO PAIN SCALE 6 TO 10; Start 03/02/17 at 15 :45 Naloxone HCl (Narcan Inj) 0.4 mg UNSCH PRN IV SEE LABEL COMMENTS; Start at 15:45 Senna/Docusate Sodium (Glenis-Colace) 1 tab BID PO ; Start 03/02/17 at 21:00 Magnesium Hydroxide (Milk Of Magnesia Liq) 30 ml Q12H PRN PO MILD - MODERATE CONSTIPATION; Start 03/02/17 at 15:45 Sennosides (Senokot) 17.2 mg Q12H PRN PO MODERATE - SEVERE CONSTIPATION; Start 03/02/17 at 15:45 Bisacodyl (Dulcolax Supp) 10 mg DAILY PRN RECTAL SEVERE CONSITIPATION; Start at 15:45 Lactulose (Lactulose Liq) 30 ml DAILY PRN PO SEVERE CONSITIPATION; Start at 15:45 Flumazenil (Romazicon Inj) 0.2 mg Q1M PRN IV PUSH SEE LABEL COMMENTS; Start 03/02/17 at 15:45 Lorazepam (Ativan) 1 mg Q4H PRN PO CIWA 8 - 10; Start 03/02/17 at 15:45 Lorazepam (Ativan Inj) 1 mg Q4H PRN IV PUSH CIWA 8 - 10; Start 03/02/17 at 15:45 Lorazepam (Ativan) 2 mg Q2H PRN PO CIWA 11-14; Start 03/02/17 at 15:45 Lorazepam (Ativan Inj) 2 mg Q2H PRN IV PUSH CIWA 11-14; Start 03/02/17 at 15:45 Lorazepam (Ativan Inj) 2 mg Q1H PRN IV PUSH CIWA 15-20; Start 03/02/17 at 15:45 Lorazepam (Ativan Inj) 2 mg Q15M PRN IV PUSH CIWA > 20; Start 03/02/17 at 15:45 Haloperidol Lactate (Haldol Inj) 2 mg Q15M PRN IM SEE LABEL COMMENTS; Start 03/02/17 at 15:45 Diazepam (Valium) 5 mg HS PRN PO ANXIETY; Start 03/02/17 at 15:45 Fluoxetine HCl (PROzac) 20 mg DAILY PO Last administered on 03/03/17t 09:50; Start 03/03/17 at 09:00 Ceftriaxone Sodium 1000 mg/ Sodium Chloride 100 ml @ 200 mls/hr Q24H IV Last administered on 03/03/17t 17:05; Start 03/03/17 at 17:00 Urinary Catheter: No Vascular Central Line Catheter: No A/P Problem List: (1) Seizure ICD Code: R56.9 - Unspecified convulsions (2) Adjustment disorder with anxiety ICD Code: F43.22 - Adjustment disorder with anxiety Status: Acute (3) Depression ICD Code: F32.9 - Major depressive disorder, single episode, unspecified Status: Acute (4) Drug abuse ICD Code: F19.10 - Other psychoactive substance abuse, uncomplicated (5) Syncopal episodes ICD Code: R55 - Syncope and collapse Status: Acute (6) Cardiac arrhythmia ICD Code: I49.9 - Cardiac arrhythmia, unspecified Status: Acute Assessment and Plan Possible seizure versus syncope For seizure Will order an EEG. 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
--- NOTE | 2017-03-03 20:14 | EKG ---
Date Performed: 03/02/2017 Time Performed: 16:02:59 PTAGE: 21 years EKG: Low atrial rhythm ABNORMAL RHYTHM ECG PREVIOUS TRACING : 03/02/2017 12.59 DOCTOR: Frances Ann Interpretating Date/Time 03/03/2017 20:10:13
--- NOTE | 2017-03-03 20:18 | EKG ---
Date Performed: 03/02/2017 Time Performed: 12:59:43 PTAGE: 21 years EKG: Low atrial rhythm ABNORMAL RHYTHM ECG NO PREVIOUS TRACING DOCTOR: Frances Ann Interpretating Date/Time 03/03/2017 20:14:33
--- NOTE | 2017-03-03 20:29 | MB ---
cc: HOANG ELIZONDO M.D. DATE OF CONSULTATION 03/03/17 REASON FOR CONSULTATION Syncopal episode. HISTORY OF PRESENT ILLNESS Ms. Clemons is a 21-year-old female with history of drug abuse. She stopped smoking this year. She drank occasionally, she was abusing Xanax. She was Jimenez Acted a week ago because she tried to cut in her veins for suicidal attempt. She referred multiple episode of syncopal episode and seizure. She was admitted to the emergency room due to syncope. Also, there is a possibility of seizure. They refers she was seizing for around 5 minutes. She was admitted. Since hospitalization doing well. The chart was reviewed. The patient was evaluated. I had a long conversation with Ms. Clemons. ALLERGIES None. SOCIAL HISTORY As mentioned before, she smokes half-a-pack of cigarettes a day. She's using Xanax. She was using ecstasy and methamphetamine and she is drinking. FAMILY HISTORY Noncontributory to her current medical condition. MEDICATIONS She was takin. Depo Provera injection every 90 days. 2. She is on Haldol p.r.n. 3. She is on Rocephin in the hospital. REVIEW OF SYSTEMS Currently she refers no chest pain, no chest discomfort. No palpitation. No syncope, no fever. PHYSICAL EXAMINATION GENERAL: Alert, fully oriented. VITAL SIGNS: Her blood pressure 94/63, pulse 78, respiratory rate 18. LUNGS: Ventilated. CARDIOVASCULAR: S1-S2. No gallop, no murmur. ABDOMEN: Soft. No mass. No bruits. EXTREMITIES: With no edema. CARDIOLOGY STUDIES Electrocardiogram shows an atrial rhythm. No pre-excitation. No acute ST and T-wave changes. LABORATORY DATA Hemoglobin 13.2, white blood cell 4.4, potassium 3.6, creatinine is 0.63. Troponin less than 0.02. TSH is 0.688. ASSESSMENT AND RECOMMENDATIONS Ms. Clemons is currently stable. She is in bed, eating. She was also on the phone. I did have a long conversation with her. She is not sure what happened to her. She had an EEG in the past that was in September last year that was negative for seizure type event. My recommendation is continue with current management. She needs to be evaluated by psychotherapist social worker and may need a followup with a therapist. She is at high risk for drug abuse. At this point the patient needs 2-D echo. If there is no abnormalities then she can be discharged home. I will see her during hospitalization. Hoang Elizondo MD HS/EO /5:50 PM /8:07 PM
[2017-03-04] VITALS (8 sets, daily range): BP systolic 111–117; BP diastolic 73–84; PULSE 57–74; RESP 16–18; TEMP 98.1–98.8; O2SAT 97–100
[2017-03-04 06:45] LABS: AUTOMATED NEUTROPHIL # 1.4 TH/MM3 (1.8-7.7); BASOPHIL % 0.5 % (0.0-2.0); EOSINOPHIL # 0.1 TH/MM3 (0-0.4); EOSINOPHIL % 2.2 % (0.0-4.0); HEMATOCRIT 42.1 % (35.0-46.0); HEMO FLAGS DIFF FINAL; LYMPH % 53.4 % (9.0-44.0); LYMPHOCYTE # 2.2 TH/MM3 (1.0-4.8); MEAN CELL VOLUME 86.6 FL (80.0-100.0); MEAN CORPUSCULAR HEMOGLOBIN 29.7 PG (27.0-34.0); MEAN CORPUSCULAR HGB CONC 34.3 % (32.0-36.0); MONO % 11.3 % (0.0-8.0); NEUT % 32.6 % (16.0-70.0); PLATELET COUNT 228 TH/MM3 (150-450); RED BLOOD COUNT 4.86 MIL/MM3 (4.00-5.30); RED CELL DISTRIBUTION WIDTH 13.5 % (11.6-17.2); WHITE BLOOD COUNT 4.2 TH/MM3 (4.0-11.0)
[2017-03-04 07:13] LABS: ALT (GPT) 15 U/L (9-42); ANION GAP 8 MEQ/L (5-15); AST (GOT) 8 U/L (16-38); BICARBONATE 22.8 MEQ/L (21.0-32.0); BLOOD UREA NITROGEN 5 MG/DL (7-18); CHLORIDE 110 MEQ/L (98-107); GLOMERULAR FILTRATION RATE 142 ML/MIN (>89); MAGNESIUM 2.1 MG/DL (1.5-2.5); POTASSIUM 3.3 MEQ/L (3.5-5.1); SODIUM (NA) 141 MEQ/L (136-145)
[2017-03-04 07:16] LABS: ALKALINE PHOSPHATASE 87 U/L (45-117); TOTAL BILIRUBIN ADULT 0.2 MG/DL (0.2-1.0)
[2017-03-04] MEDS ORDERED: POTASSIUM CHLORIDE 20 MEQ CONTROLLED RELEASE TAB PO ONE (08:00)
[2017-03-04] MEDS: FLUoxetine HCL 20 MG CAP PO SCH (08:51)
[2017-03-04] MEDS: SODIUM CHLOR 0.9% 1000 ML INJ 1,000 ML IV SCH (08:51)
[2017-03-04] MEDS: SODIUM CHLORIDE 0.9% FLUSH 10 ML FLUSH IV FLUSH SCH (08:52)
[2017-03-04] MEDS: DOCUSATE SODIUM 50 MG/SENNA 8.6 MG TAB PO SCH (09:00)
--- NOTE | 2017-03-04 09:16 | PD.CARD.PN ---
Subjective Subjective Remarks Feels better this morning. States she had some dizziness when sitting up yesterday. Objective Medications Current Medications Medications (Trade) Dose Ordered Sig/Tracie Route Start Time Stop Time Status Last Admin Sodium Chloride 1,000 ml @ 100 mls/hr Q10H IV 03/02/17 15:33 03/04/17 08:51 (NS Flush) 2 ml UNSCH PRN IV FLUSH 03/02/17 15:45 (NS Flush) 2 ml BID IV FLUSH 03/02/17 21:00 03/04/17 08:52 (Tylenol) 650 mg Q4H PRN PO 03/02/17 15:45 (Zofran Inj) 4 mg Q6H PRN IVP 03/02/17 15:45 (Compazine Supp) 25 mg Q12H PRN RECTAL 03/02/17 15:45 (Heparin Inj) 5,000 units Q12H SQ 03/02/17 17:00 (Tylenol) 650 mg Q6H PRN PO 03/02/17 15:45 03/03/17 10:39 (Morphine Inj) 4 mg Q3H PRN IV 03/02/17 15:45 (Ultram) 50 mg Q4H PRN PO 03/02/17 15:45 03/02/17 17:52 (Ultram) 100 mg Q4H PRN PO 03/02/17 15:45 (Narcan Inj) 0.4 mg UNSCH PRN IV 03/02/17 15:45 (Glenis-Colace) 1 tab BID PO 03/02/17 21:00 (Milk Of Magnesia Liq) 30 ml Q12H PRN PO 03/02/17 15:45 (Senokot) 17.2 mg Q12H PRN PO 03/02/17 15:45 (Dulcolax Supp) 10 mg DAILY PRN RECTAL 03/02/17 15:45 (Lactulose Liq) 30 ml DAILY PRN PO 03/02/17 15:45 (Romazicon Inj) 0.2 mg Q1M PRN IV PUSH 03/02/17 15:45 (Ativan) 1 mg Q4H PRN PO 03/02/17 15:45 (Ativan Inj) 1 mg Q4H PRN IV PUSH 03/02/17 15:45 (Ativan) 2 mg Q2H PRN PO 03/02/17 15:45 (Ativan Inj) 2 mg Q2H PRN IV PUSH 03/02/17 15:45 (Ativan Inj) 2 mg Q1H PRN IV PUSH 03/02/17 15:45 (Ativan Inj) 2 mg Q15M PRN IV PUSH 03/02/17 15:45 (Haldol Inj) 2 mg Q15M PRN IM 03/02/17 15:45 (Valium) 5 mg HS PRN PO 03/02/17 15:45 (PROzac) 20 mg DAILY PO 03/03/17 09:00 03/04/17 08:51 Ceftriaxone Sodium 1000 mg/ Sodium Chloride 100 ml @ 200 mls/hr Q24H IV 03/03/17 17:00 03/03/17 17:05 Vital Signs / I&O Vital Signs Date Time Temp Pulse Resp B/P (MAP) Pulse Ox O2 Delivery O2 Flow Rate FiO2 03/04/17 07:36 98.4 63 16 117/73 (88) 99 03/04/17 06:17 21 03/04/17 03:56 67 03/04/17 03:09 98.1 61 18 112/84 (93) 99 03/04/17 00:03 98.8 70 18 113/84 (94) 99 03/03/17 23:45 68 03/03/17 21:21 99 21 03/03/17 20:07 68 03/03/17 19:18 98.3 75 18 114/73 (87) 98 03/03/17 18:03 90 03/03/17 15:41 98.7 78 17 94/63 (73) 100 03/03/17 12:31 63 03/03/17 11:44 98.8 67 19 114/71 (85) 98 I/O 03/03/17 03/03/17 03/03/17 03/04/17 03/04/17 03/04/17 06:59 14:59 22:59 06:59 14:59 22:59 Intake Total 480 ml 480 ml Balance 480 ml 480 ml Intake Oral 480 ml 480 ml # Voids 5 2 Physical Exam GENERAL: Thin, well-developed patient. SKIN: Warm and dry. HEAD: Normocephalic. EYES: No scleral icterus. No injection or drainage. NECK: Supple, trachea midline. No JVD or lymphadenopathy. CARDIOVASCULAR: Regular rate and rhythm without murmurs, gallops, or rubs. RESPIRATORY: Breath sounds equal bilaterally. No accessory muscle use. GASTROINTESTINAL: Abdomen soft, non-tender, nondistended. EXTREMITIES: No cyanosis, or edema. NEUROLOGICAL: Awake, alert, and oriented x 3. Non-focal. Laboratory Laboratory Tests Test 03/04/17 06:10 White Blood Count 4.2 TH/MM3 Red Blood Count 4.86 MIL/MM3 Hemoglobin 14.4 GM/DL Hematocrit 42.1 % Mean Corpuscular Volume 86.6 FL Mean Corpuscular Hemoglobin 29.7 PG Mean Corpuscular Hemoglobin Concent 34.3 % Red Cell Distribution Width 13.5 % Platelet Count 228 TH/MM3 Mean Platelet Volume 7.2 FL Neutrophils (%) (Auto) 32.6 % Lymphocytes (%) (Auto) 53.4 % Monocytes (%) (Auto) 11.3 % Eosinophils (%) (Auto) 2.2 % Basophils (%) (Auto) 0.5 % Neutrophils # (Auto) 1.4 TH/MM3 Lymphocytes # (Auto) 2.2 TH/MM3 Monocytes # (Auto) 0.5 TH/MM3 Eosinophils # (Auto) 0.1 TH/MM3 Basophils # (Auto) 0.0 TH/MM3 CBC Comment DIFF FINAL Differential Comment Blood Urea Nitrogen 5 MG/DL Creatinine 0.55 MG/DL Random Glucose 82 MG/DL Total Protein 7.3 GM/DL Albumin 3.8 GM/DL Calcium Level 8.6 MG/DL Phosphorus Level 3.0 MG/DL Magnesium Level 2.1 MG/DL Alkaline Phosphatase 87 U/L Aspartate Amino Transf (AST/SGOT) 8 U/L Alanine Aminotransferase (ALT/SGPT) 15 U/L Total Bilirubin 0.2 MG/DL Sodium Level 141 MEQ/L Potassium Level 3.3 MEQ/L Chloride Level 110 MEQ/L Carbon Dioxide Level 22.8 MEQ/L Anion Gap 8 MEQ/L Estimat Glomerular Filtration Rate 142 ML/MIN Imaging Last Impressions Cervical Spine CT 03/02/17 1258 Signed Impressions: Service Date/Time: Thursday, March 02, 2017 13:50 - CONCLUSION: Reversal of the normal lordosis without fracture. Minimal right-sided bulge at C5-C6. Shantanu Coombs MD FACR Head CT 03/02/17 0000 Signed Impressions: Service Date/Time: Thursday, March 02, 2017 13:50 - CONCLUSION: Negative for acute process. Shantanu Coombs MD FACR Carotid Artery Ultrasound 03/02/17 0000 Signed Impressions: Service Date/Time: Thursday, March 02, 2017 16:10 - CONCLUSION: Unremarkable exam. Skyler Zabala MD Assessment and Plan Problem List: (1) Syncopal episodes ICD Codes: R55 - Syncope and collapse Status: Acute Plan: No recurrent syncope. (2) Cardiac arrhythmia ICD Codes: I49.9 - Cardiac arrhythmia, unspecified Status: Acute Plan: Likely related to dehydration, drug abuse. Normal sinus rhythm this morning. 2-D echocardiogram pending. If echo is negative she can be discharged home. Recommend social service worker consult to assist in outpatient counseling for drug abuse. Assessment and plan discussed with patient, RN, Dr. Ann. Problem Qualifiers (1) Syncopal episodes: Qualified Codes: R55 - Syncope and collapse (2) Cardiac arrhythmia: Qualified Codes: I47.0 - Re-entry ventricular arrhythmia Anna Orlando Mar 04, 2017 09:16
--- NOTE | 2017-03-04 11:46 | ECHRPT ---
Indication: A-FIB CONCLUSIONS The left ventricular systolic function is normal with an estimated ejection fraction in the range of 55-60%. There is trace tricuspid valve regurgitation. BP: 115 / 71 HR: 72 Rhythm: Atrial fibrillation MEASUREMENTS (Male / Female) Normal Values Technical Quality:Excellent 2D ECHO LV Diastolic Diameter PLAX 3.7 cm 4.2 - 5.9 / 3.9 - 5.3 cm LV Systolic Diameter PLAX 2.5 cm IVS Diastolic Thickness 1.0 cm 0.6 - 1.0 / 0.6 - 0.9 cm LVPW Diastolic Thickness 1.0 cm 0.6 - 1.0 / 0.6 - 0.9 cm LV Relative Wall Thickness 0.5 RV Internal Dim ED PLAX 1.9 cm LVOT Diameter 1.7 cm LA Systolic Diameter LX 2.4 cm 3.0 - 4.0 / 2.7 - 3.8 cm M-MODE Aortic Root Diameter MM 2.7 cm AV Cusp Separation MM 1.9 cm DOPPLER AV Peak Velocity 130.0 cm/s AV Peak Gradient 6.8 mmHg LVOT Peak Velocity 114.0 cm/s LVOT Peak Gradient 5.2 mmHg AV Area Cont Eq pk 2.0 cm MV Area PHT 2.8 cm Mitral E Point Velocity 75.0 cm/s Mitral A Point Velocity 33.1 cm/s Mitral E to A Ratio 2.3 LV E' Lateral Velocity 15.6 cm/s Mitral E to LV E' Lateral Ratio 4.8 LV E' Septal Velocity 9.8 cm/s Mitral E to LV E' Septal Ratio 7.6 TR Peak Velocity 176.0 cm/s TR Peak Gradient 12.4 mmHg PV Peak Velocity 92.3 cm/s PV Peak Gradient 3.4 mmHg FINDINGS LEFT VENTRICLE Normal left ventricular size and wall thickness. The left ventricular systolic function is normal with an estimated ejection fraction in the range of 55-60%. Left ventricular diastolic function parameters are normal. RIGHT VENTRICLE Normal right ventricular size and systolic function. LEFT ATRIUM The left atrial size is normal. RIGHT ATRIUM The right atrial size is normal. ATRIAL SEPTUM Normal atrial septal thickness without atrial level shunting by limited color doppler interrogation. AORTA The aortic root and proximal ascending aorta are normal in size on limited imaging. MITRAL VALVE Structurally normal mitral valve. No mitral valve stenosis or regurgitation. AORTIC VALVE Probable trileaflet aortic valve, cannot rule out bicuspid aortic valve on this study. No aortic des ve stenosis or regurgitation. TRICUSPID VALVE There is trace tricuspid valve regurgitation. Normal estimated pulmonary pressures. PULMONARY VALVE The pulmonary valve is not well visualized. VESSELS The inferior vena cava is normal in size. PERICARDIUM No pericardial effusion. David Brown DO (Electronically Signed) Final Date:04 March 2017 11:45
--- NOTE | 2017-03-04 16:15 | MG ---
cc: KETURAH ALMEIDA MD Sex: F DATE OF STUDY: 03/04/2017 [id number] DATE OF : 1995 INTRODUCTION: A 21-year-old female with a history of possible seizure, syncope, substance abuse, mood disorder, anxiety. DESCRIPTION: Poly frequency EEG with background slowing theta frequencies, increased beta frequencies noted throughout the recording. The appearance of vertex waves suggest a stage I sleep with tiny small left frontal central sharp transients in epoch 87. Limited driving with photic stimulation. Single lead EKG showing sinus rhythm with sinus arrhythmia. INTERPRETATION Minimal nonspecific changes as noted above. No active seizure activity, otherwise mainly sleep state. Increased fast frequencies which may be medication related effect. Clinical correlation. Keturah Almeida MD MG/GABI /3:43 PM /3:58 PM
--- NOTE | 2017-03-04 17:54 | HHI.PR ---
Subjective Remarks 21-year-old female presents to emergency Department with reported seizure last evening which lasted reportedly approximate 5 minutes. At that time the patient was at a friend's house, and was then taken to her father's house. She is brought in today by her grandmother. Current complaints include headache, neck pain, but she does not remember the event. She denies fever, chills, or other symptoms. Patient admits that she was abusing Xanax up until one week ago. Patient was seen here a week ago as a Jimenez act for cutting behavior. At that time she was found to have amphetamines in her bloodstream. Patient relates a history of syncope versus seizure in the past approximate year ago, and states she was seen by a neurologist and had an EEG showing no seizure like activity, but was told it was "in her heart". Patient has no previous EKG on file here at [facility]. She currently is otherwise apparently stable. Patient denies or recent drug use. She states her headache pain as a 9 out of 10. She has no known drug allergies. has hx of amphetamine use also- states it was in ectasy she took 03-03 NOT ABLE TO GET ECHO OR EEG DONE TODAY HAS BEEN SEEN BY CARDIOLOGY BUT CANNOT BE CLEARED BECAUSE ALL THE STUDIES ARE NOT BACK YET DW CARDIOLOGY AND RN AND PT HAS UTI ON ROCEPHIN 03-04 CLEARED BY CARDIO ECHO STABLE EEG STABLE NEEDS UTI TREATMENT ENTEROBACTER CLOACAE treat with augmentin Objective Vitals Vital Signs Date Time Temp Pulse Resp B/P (MAP) Pulse Ox O2 Delivery O2 Flow Rate FiO2 03/04/17 15:47 98.5 74 16 111/75 (87) 100 03/04/17 12:09 98.1 57 16 113/83 (93) 97 03/04/17 12:02 74 03/04/17 07:38 74 03/04/17 07:36 98.4 63 16 117/73 (88) 99 03/04/17 06:17 21 03/04/17 03:56 67 03/04/17 03:09 98.1 61 18 112/84 (93) 99 03/04/17 00:03 98.8 70 18 113/84 (94) 99 03/03/17 23:45 68 03/03/17 21:21 99 21 03/03/17 20:07 68 03/03/17 19:18 98.3 75 18 114/73 (87) 98 03/03/17 18:03 90 I/O 03/03/17 03/03/17 03/03/17 03/04/17 03/04/17 03/04/17 06:59 14:59 22:59 06:59 14:59 22:59 Intake Total 480 ml 480 ml Balance 480 ml 480 ml Intake Oral 480 ml 480 ml # Voids 5 2 Result Diagram: 03/04/17 0610 03/04/17 0610 Other Results Laboratory Tests Test 03/02/17 13:02 03/02/17 13:30 03/02/17 20:45 03/03/17 05:23 White Blood Count 5.3 TH/MM3 4.4 TH/MM3 Red Blood Count 5.51 MIL/MM3 4.52 MIL/MM3 Hemoglobin 15.9 GM/DL 13.2 GM/DL Hematocrit 48.4 % 39.4 % Mean Corpuscular Volume 87.9 FL 87.0 FL Mean Corpuscular Hemoglobin 28.8 PG 29.1 PG Mean Corpuscular Hemoglobin Concent 32.8 % 33.5 % Red Cell Distribution Width 13.8 % 13.9 % Platelet Count 253 TH/MM3 225 TH/MM3 Mean Platelet Volume 7.3 FL 6.9 FL Neutrophils (%) (Auto) 47.1 % 34.4 % Lymphocytes (%) (Auto) 41.6 % 52.6 % Monocytes (%) (Auto) 9.7 % 9.9 % Eosinophils (%) (Auto) 0.9 % 2.4 % Basophils (%) (Auto) 0.7 % 0.7 % Neutrophils # (Auto) 2.5 TH/MM3 1.5 TH/MM3 Lymphocytes # (Auto) 2.2 TH/MM3 2.3 TH/MM3 Monocytes # (Auto) 0.5 TH/MM3 0.4 TH/MM3 Eosinophils # (Auto) 0.0 TH/MM3 0.1 TH/MM3 Basophils # (Auto) 0.0 TH/MM3 0.0 TH/MM3 CBC Comment DIFF FINAL DIFF FINAL Differential Comment Blood Urea Nitrogen 9 MG/DL 9 MG/DL Creatinine 0.91 MG/DL 0.63 MG/DL Random Glucose 64 MG/DL 74 MG/DL Total Protein 8.1 GM/DL 6.4 GM/DL Albumin 4.2 GM/DL 3.3 GM/DL Calcium Level 8.8 MG/DL 8.3 MG/DL Alkaline Phosphatase 100 U/L 82 U/L Aspartate Amino Transf (AST/SGOT) 19 U/L 10 U/L Alanine Aminotransferase (ALT/SGPT) 19 U/L 14 U/L Total Bilirubin 0.3 MG/DL 0.4 MG/DL Sodium Level 141 MEQ/L 137 MEQ/L Potassium Level 3.9 MEQ/L 3.6 MEQ/L Chloride Level 109 MEQ/L 107 MEQ/L Carbon Dioxide Level 22.8 MEQ/L 22.5 MEQ/L Anion Gap 9 MEQ/L 8 MEQ/L Estimat Glomerular Filtration Rate 80 ML/MIN 122 ML/MIN Total Creatine Kinase 116 U/L 101 U/L 83 U/L Troponin I LESS THAN 0.02 NG/ML LESS THAN 0.02 NG/ML LESS THAN 0.02 NG/ML Ethyl Alcohol Level 53 MG/DL Urine Color YELLOW Urine Turbidity HAZY Urine pH 6.0 Urine Specific [place] 1.029 Urine Protein 30 mg/dL Urine Glucose (UA) NEG mg/dL Urine Ketones TRACE mg/dL Urine Occult Blood SMALL Urine Nitrite NEG Urine Bilirubin NEG Urine Urobilinogen 2.0 MG/DL Urine Leukocyte Esterase MOD Urine RBC 1 /hpf Urine WBC 56 /hpf Urine Squamous Epithelial Cells 3 /hpf Urine Bacteria MANY /hpf Urine Mucus MANY /lpf Microscopic Urinalysis Comment CULTURE INDICATED Urine Opiates Screen NEG Urine Barbiturates Screen NEG Urine Amphetamines Screen NEG Urine Benzodiazepines Screen POS Urine Cocaine Screen NEG Urine Cannabinoids Screen POS Phosphorus Level 3.1 MG/DL Magnesium Level 1.8 MG/DL Hemoglobin A1c 5.3 % Free Thyroxine 0.91 NG/DL Thyroid Stimulating Hormone 3rd Gen 0.668 uIU/ML Test 03/04/17 06:10 White Blood Count 4.2 TH/MM3 Red Blood Count 4.86 MIL/MM3 Hemoglobin 14.4 GM/DL Hematocrit 42.1 % Mean Corpuscular Volume 86.6 FL Mean Corpuscular Hemoglobin 29.7 PG Mean Corpuscular Hemoglobin Concent 34.3 % Red Cell Distribution Width 13.5 % Platelet Count 228 TH/MM3 Mean Platelet Volume 7.2 FL Neutrophils (%) (Auto) 32.6 % Lymphocytes (%) (Auto) 53.4 % Monocytes (%) (Auto) 11.3 % Eosinophils (%) (Auto) 2.2 % Basophils (%) (Auto) 0.5 % Neutrophils # (Auto) 1.4 TH/MM3 Lymphocytes # (Auto) 2.2 TH/MM3 Monocytes # (Auto) 0.5 TH/MM3 Eosinophils # (Auto) 0.1 TH/MM3 Basophils # (Auto) 0.0 TH/MM3 CBC Comment DIFF FINAL Differential Comment Blood Urea Nitrogen 5 MG/DL Creatinine 0.55 MG/DL Random Glucose 82 MG/DL Total Protein 7.3 GM/DL Albumin 3.8 GM/DL Calcium Level 8.6 MG/DL Phosphorus Level 3.0 MG/DL Magnesium Level 2.1 MG/DL Alkaline Phosphatase 87 U/L Aspartate Amino Transf (AST/SGOT) 8 U/L Alanine Aminotransferase (ALT/SGPT) 15 U/L Total Bilirubin 0.2 MG/DL Sodium Level 141 MEQ/L Potassium Level 3.3 MEQ/L Chloride Level 110 MEQ/L Carbon Dioxide Level 22.8 MEQ/L Anion Gap 8 MEQ/L Estimat Glomerular Filtration Rate 142 ML/MIN Imaging Last Impressions Cervical Spine CT 03/02/17 1258 Signed Impressions: Service Date/Time: Thursday, March 02, 2017 13:50 - CONCLUSION: Reversal of the normal lordosis without fracture. Minimal right-sided bulge at C5-C6. Shantanu Coombs MD FACR Head CT 03/02/17 0000 Signed Impressions: Service Date/Time: Thursday, March 02, 2017 13:50 - CONCLUSION: Negative for acute process. Shantanu Coombs MD FACR Carotid Artery Ultrasound 03/02/17 0000 Signed Impressions: Service Date/Time: Thursday, March 02, 2017 16:10 - CONCLUSION: Unremarkable exam. Skyler Zabala MD Objective Remarks GENERAL: This is a well-nourished, well-developed patient, in no apparent distress. SKIN: No rashes, ecchymoses or lesions. Cool and dry. HEAD: Atraumatic. Normocephalic. No temporal or scalp tenderness. EYES: Pupils equal round and reactive. Extraocular motions intact. No scleral icterus. No injection or drainage. ENT: Nose without bleeding, purulent drainage or septal hematoma. Throat without erythema, tonsillar hypertrophy or exudate. Uvula midline. Airway patent. Oral mucosa is moist tongue is midline NECK: Trachea midline. No JVD or lymphadenopathy. Supple, nontender, no meningeal signs. CARDIOVASCULAR: Regular rate and rhythm without murmurs, gallops, or rubs. S1 and S2 no S3 or S4 RESPIRATORY: Clear to auscultation. Breath sounds equal bilaterally. No wheezes , rales, or rhonchi. GASTROINTESTINAL: Abdomen soft, non-tender, nondistended. No hepato-splenomegaly , or palpable masses. No guarding. MUSCULOSKELETAL: Extremities without clubbing, cyanosis, or edema. No joint tenderness, effusion, or edema noted. No calf tenderness. Negative Homans sign bilaterally. NEUROLOGICAL: Awake and alert. Cranial nerves II through XII intact. Motor and sensory grossly within normal limits. Five out of 5 muscle strength in all muscle groups. Normal speech. Insight and judgment are okay, mood and behavior somewhat appropriate Medications and IVs Current Medications Sodium Chloride 1,000 ml @ 1,000 mls/hr Q1H ONCE IV Last administered on 13:14; Start 03/02/17 at 12:58; Stop 03/02/17 at 13:57; Status DC Sodium Chloride (NS Flush) 2 ml UNSCH PRN IVF FLUSH AFTER USING IV ACCESS; Start 03/02/17 at 13:00; Stop 03/02/17 at 15:51; Status DC Ceftriaxone Sodium 1000 mg/ Sodium Chloride 100 ml @ 200 mls/hr ONCE ONCE IV Last administered on 03/02/17 14:28; Start 03/02/17 at 14:15; Stop 03/02/17 at 14: 44; Status DC Sodium Chloride 1,000 ml @ 100 mls/hr Q10H IV Last administered on 03/04/17 08 :51; Start 03/02/17 at 15:33 Sodium Chloride (NS Flush) 2 ml UNSCH PRN IV FLUSH FLUSH AFTER USING IV ACCESS ; Start 03/02/17 at 15:45 Sodium Chloride (NS Flush) 2 ml BID IV FLUSH Last administered on 03/04/17 08: 52; Start 03/02/17 at 21:00 Acetaminophen (Tylenol) 650 mg Q4H PRN PO TEMP > 100.4; Start 03/02/17 at 15:45 Ondansetron HCl (Zofran Inj) 4 mg Q6H PRN IVP NAUSEA OR VOMITING; Start at 15:45 Prochlorperazine (Compazine Supp) 25 mg Q12H PRN RECTAL NAUSEA OR VOMITING; Start 03/02/17 at 15:45 Heparin Sodium (Porcine) (Heparin Inj) 5,000 units Q12H SQ ; Start 03/02/17 at 17 :00 Acetaminophen (Tylenol) 650 mg Q6H PRN PO PAIN SCALE 1 TO 2 Last administered on 03/03/17 10:39; Start 03/02/17 at 15:45 Morphine Sulfate (Morphine Inj) 4 mg Q3H PRN IV Pain 6-10;if unable to take PO ; Start 03/02/17 at 15:45 Tramadol HCl (Ultram) 50 mg Q4H PRN PO PAIN SCALE 3 TO 5 Last administered on 17:52; Start 03/02/17 at 15:45 Tramadol HCl (Ultram) 100 mg Q4H PRN PO PAIN SCALE 6 TO 10; Start 03/02/17 at 15 :45 Naloxone HCl (Narcan Inj) 0.4 mg UNSCH PRN IV SEE LABEL COMMENTS; Start at 15:45 Senna/Docusate Sodium (Glenis-Colace) 1 tab BID PO ; Start 03/02/17 at 21:00 Magnesium Hydroxide (Milk Of Magnesia Liq) 30 ml Q12H PRN PO MILD - MODERATE CONSTIPATION; Start 03/02/17 at 15:45 Sennosides (Senokot) 17.2 mg Q12H PRN PO MODERATE - SEVERE CONSTIPATION; Start 03/02/17 at 15:45 Bisacodyl (Dulcolax Supp) 10 mg DAILY PRN RECTAL SEVERE CONSITIPATION; Start at 15:45 Lactulose (Lactulose Liq) 30 ml DAILY PRN PO SEVERE CONSITIPATION; Start at 15:45 Flumazenil (Romazicon Inj) 0.2 mg Q1M PRN IV PUSH SEE LABEL COMMENTS; Start 03/02/17 at 15:45 Lorazepam (Ativan) 1 mg Q4H PRN PO CIWA 8 - 10; Start 03/02/17 at 15:45 Lorazepam (Ativan Inj) 1 mg Q4H PRN IV PUSH CIWA 8 - 10; Start 9/3/17 at 15:45 Lorazepam (Ativan) 2 mg Q2H PRN PO CIWA 11-14; Start 03/02/17 at 15:45 Lorazepam (Ativan Inj) 2 mg Q2H PRN IV PUSH CIWA 11-14; Start 03/02/17 at 15:45 Lorazepam (Ativan Inj) 2 mg Q1H PRN IV PUSH CIWA 15-20; Start 03/02/17 at 15:45 Lorazepam (Ativan Inj) 2 mg Q15M PRN IV PUSH CIWA > 20; Start 03/02/17 at 15:45 Haloperidol Lactate (Haldol Inj) 2 mg Q15M PRN IM SEE LABEL COMMENTS; Start 03/02/17 at 15:45 Diazepam (Valium) 5 mg HS PRN PO ANXIETY; Start 03/02/17 at 15:45 Fluoxetine HCl (PROzac) 20 mg DAILY PO Last administered on 03/04/17 08:51; Start 03/03/17 at 09:00 Ceftriaxone Sodium 1000 mg/ Sodium Chloride 100 ml @ 200 mls/hr Q24H IV Last administered on 03/03/17 17:05; Start 03/03/17 at 17:00 Potassium Chloride (KCl) 40 meq ONCE ONCE PO Last administered on 03/04/17 08: 51; Start 03/04/17 at 08:00; Stop 03/04/17 at 08:06; Status DC Urinary Catheter: No Vascular Central Line Catheter: No A/P Problem List: (1) Seizure ICD Code: R56.9 - Unspecified convulsions (2) Adjustment disorder with anxiety ICD Code: F43.22 - Adjustment disorder with anxiety Status: Acute (3) Depression ICD Code: F32.9 - Major depressive disorder, single episode, unspecified Status: Acute (4) Drug abuse ICD Code: F19.10 - Other psychoactive substance abuse, uncomplicated (5) Syncopal episodes ICD Code: R55 - Syncope and collapse Status: Acute (6) Cardiac arrhythmia ICD Code: I49.9 - Cardiac arrhythmia, unspecified Status: Acute Assessment and Plan Possible seizure versus syncope For seizure Will order an EEG. His early had CAT scan of the head which is stable FOr syncope has already had a CAT scan of the head will order an echocardiogram as well as carotid For abnormal heart rhythm will consult cardiology trend troponins and trend EKGs Drug abuse continue on CIWA protocol Pain control as needed Home anxiety medications We'll get a urinalysis and monitor her for her drug abuse and any signs of withdrawal UA IS POSITIVE FOR UTI ENTEROBACTER CLOACAE Await cardiology input Continue on DVT and GI prophylaxis EEG IS STABLE ECHO IS STABLE CLEARED FOR DC TO HOME TODAY Discussed with patient and RN Had a female mandolin repairer in room in all time of exam Problem Qualifiers (1) Syncopal episodes: Qualified Codes: R55 - Syncope and collapse (2) Cardiac arrhythmia: Qualified Codes: I47.0 - Re-entry ventricular arrhythmia Shantanu Littlejohn DO Mar 04, 2017 17:54
[2017-03-04] MEDS ORDERED: AUGM875T3 PO (17:59)
[2017-03-04] MEDS ORDERED: LACTCHW3 CHEW (17:59)
[2017-03-04] MEDS ORDERED: FLUO20CA12 PO (17:59)
--- NOTE | 2017-03-04 18:02 | HHI.DS ---
Discharge Summary Admission Date Mar 02, 2017 at 15:35 Discharge Date: Mar 04, 2017 Admitting Diagnosis Dysrythmia/syncope (1) Seizure ICD Code: R56.9 - Unspecified convulsions Diagnosis: Secondary (2) Adjustment disorder with anxiety ICD Code: F43.22 - Adjustment disorder with anxiety Diagnosis: Principal Status: Acute (3) Depression ICD Code: F32.9 - Major depressive disorder, single episode, unspecified Diagnosis: Principal Status: Acute (4) Drug abuse ICD Code: F19.10 - Other psychoactive substance abuse, uncomplicated Diagnosis: Principal (5) Syncopal episodes ICD Code: R55 - Syncope and collapse Diagnosis: Principal Status: Acute (6) Cardiac arrhythmia ICD Code: I49.9 - Cardiac arrhythmia, unspecified Diagnosis: Secondary Status: Acute (7) UTI (urinary tract infection) ICD Code: N39.0 - Urinary tract infection, site not specified Diagnosis: Principal (8) Infection due to Enterobacter cloacae ICD Code: A49.8 - Other bacterial infections of unspecified site Diagnosis: Principal Procedures eeg and echo Brief History - From Admission 21-year-old female presents to emergency Department with reported seizure last evening which lasted reportedly approximate 5 minutes. At that time the patient was at a friend's house, and was then taken to her father's house. She is brought in today by her grandmother. Current complaints include headache, neck pain, but she does not remember the event. She denies fever, chills, or other symptoms. Patient admits that she was abusing Xanax up until one week ago. Patient was seen here a week ago as a Jimenez act for cutting behavior. At that time she was found to have amphetamines in her bloodstream. Patient relates a history of syncope versus seizure in the past approximate year ago, and states she was seen by a neurologist and had an EEG showing no seizure like activity, but was told it was "in her heart". Patient has no previous EKG on file here at [facility]. She currently is otherwise apparently stable. Patient denies or recent drug use. She states her headache pain as a 9 out of 10. She has no known drug allergies. CBC/BMP: 03/04/17 0610 03/04/17 0610 Significant Findings Laboratory Tests Test 03/02/17 13:02 03/02/17 13:30 03/02/17 20:45 03/03/17 05:23 Red Blood Count 5.51 MIL/MM3 (4.00-5.30) Hemoglobin 15.9 GM/DL (11.6-15.3) Hematocrit 48.4 % (35.0-46.0) Monocytes (%) (Auto) 9.7 % (0.0-8.0) 9.9 % (0.0-8.0) Random Glucose 64 MG/DL (74-106) Chloride Level 109 MEQ/L (98-107) Estimat Glomerular Filtration Rate 80 ML/MIN (>89) Troponin I LESS THAN 0.02 NG/ML LESS THAN 0.02 NG/ML LESS THAN 0.02 NG/ML Ethyl Alcohol Level 53 MG/DL (0-5) Urine Turbidity HAZY (CLEAR) Urine Protein 30 mg/dL (NEG-TRACE) Urine Ketones TRACE mg/dL (NEG) Urine Occult Blood SMALL (NEG) Urine Leukocyte Esterase MOD (NEG) Urine WBC 56 /hpf (0-5) Urine Bacteria MANY /hpf (NONE) Urine Mucus MANY /lpf (OCC) Urine Benzodiazepines Screen POS (NEG) Urine Cannabinoids Screen POS (NEG) Mean Platelet Volume 6.9 FL (7.0-11.0) Lymphocytes (%) (Auto) 52.6 % (9.0-44.0) Neutrophils # (Auto) 1.5 TH/MM3 (1.8-7.7) Albumin 3.3 GM/DL (3.4-5.0) Calcium Level 8.3 MG/DL (8.5-10.1) Aspartate Amino Transf (AST/SGOT) 10 U/L (16-38) Test 03/04/17 06:10 Lymphocytes (%) (Auto) 53.4 % (9.0-44.0) Monocytes (%) (Auto) 11.3 % (0.0-8.0) Neutrophils # (Auto) 1.4 TH/MM3 (1.8-7.7) Blood Urea Nitrogen 5 MG/DL (7-18) Aspartate Amino Transf (AST/SGOT) 8 U/L (16-38) Potassium Level 3.3 MEQ/L (3.5-5.1) Chloride Level 110 MEQ/L (98-107) Imaging Last Impressions Cervical Spine CT 03/02/17 1258 Signed Impressions: Service Date/Time: Thursday, March 02, 2017 13:50 - CONCLUSION: Reversal of the normal lordosis without fracture. Minimal right-sided bulge at C5-C6. Shantanu Coombs MD FACR Head CT 03/02/17 0000 Signed Impressions: Service Date/Time: Thursday, March 02, 2017 13:50 - CONCLUSION: Negative for acute process. Shantanu Coombs MD FACR Carotid Artery Ultrasound 03/02/17 0000 Signed Impressions: Service Date/Time: Thursday, March 02, 2017 16:10 - CONCLUSION: Unremarkable exam. Skyler Zabala MD PE at Discharge GENERAL: This is a well-nourished, well-developed patient, in no apparent distress. SKIN: No rashes, ecchymoses or lesions. Cool and dry. HEAD: Atraumatic. Normocephalic. No temporal or scalp tenderness. EYES: Pupils equal round and reactive. Extraocular motions intact. No scleral icterus. No injection or drainage. ENT: Nose without bleeding, purulent drainage or septal hematoma. Throat without erythema, tonsillar hypertrophy or exudate. Uvula midline. Airway patent. Oral mucosa is moist tongue is midline NECK: Trachea midline. No JVD or lymphadenopathy. Supple, nontender, no meningeal signs. CARDIOVASCULAR: Regular rate and rhythm without murmurs, gallops, or rubs. S1 and S2 no S3 or S4 RESPIRATORY: Clear to auscultation. Breath sounds equal bilaterally. No wheezes , rales, or rhonchi. GASTROINTESTINAL: Abdomen soft, non-tender, nondistended. No hepato-splenomegaly , or palpable masses. No guarding. MUSCULOSKELETAL: Extremities without clubbing, cyanosis, or edema. No joint tenderness, effusion, or edema noted. No calf tenderness. Negative Homans sign bilaterally. NEUROLOGICAL: Awake and alert. Cranial nerves II through XII intact. Motor and sensory grossly within normal limits. Five out of 5 muscle strength in all muscle groups. Normal speech. Insight and judgment are okay, mood and behavior somewhat appropriate Hospital Course 21-year-old female presents to emergency Department with reported seizure last evening which lasted reportedly approximate 5 minutes. At that time the patient was at a friend's house, and was then taken to her father's house. She is brought in today by her grandmother. Current complaints include headache, neck pain, but she does not remember the event. She denies fever, chills, or other symptoms. Patient admits that she was abusing Xanax up until one week ago. Patient was seen here a week ago as a Jimenez act for cutting behavior. At that time she was found to have amphetamines in her bloodstream. Patient relates a history of syncope versus seizure in the past approximate year ago, and states she was seen by a neurologist and had an EEG showing no seizure like activity, but was told it was "in her heart". Patient has no previous EKG on file here at [facility]. She currently is otherwise apparently stable. Patient denies or recent drug use. She states her headache pain as a 9 out of 10. She has no known drug allergies. has hx of amphetamine use also- states it was in ectasy she took 9-4 NOT ABLE TO GET ECHO OR EEG DONE TODAY HAS BEEN SEEN BY CARDIOLOGY BUT CANNOT BE CLEARED BECAUSE ALL THE STUDIES ARE NOT BACK YET DW CARDIOLOGY AND RN AND PT HAS UTI ON ROCEPHIN 9-5 CLEARED BY CARDIO ECHO STABLE EEG STABLE NEEDS UTI TREATMENT ENTEROBACTER CLOACAE treat with augmentin Pt Condition on Discharge: Stable Discharge Disposition: Discharge Home Discharge Time: > 30 minutes Discharge Instructions DIET: Follow Instructions for: Heart Healthy Diet Activities you can perform: Regular-No Restrictions Follow up Referrals: PCP Follow-up - 1 Week New Medications: Amoxicillin-Clavulanate (Augmentin) 875-125 Mg Tab 1 TAB PO BID for Infection, #28 TAB 0 Refills Lactobacillus Acidophilus (Lactinex) 1 Chew 1 TAB CHEW TID for Nutritional Supplement for 14 Days, #42 TAB 0 Refills Continued Medications: Diazepam (Valium) 5 Mg Tab 5 MG PO HS PRN for ANXIETY, #30 TAB 0 Refills Fluoxetine (Fluoxetine) 20 Mg Capsule 20 MG PO DAILY for Anxiety, #30 CAP 0 Refills (This prescription has been renewed) Medroxyprogesterone Inj (Depo-Provera Inj) 150 Mg/Ml Inj 150 MG IM Q90D for Control, VIAL 0 Refills Shantanu Littlejohn DO Mar 04, 2017 18:02
== END 2017-03-04 19:41 | disposition home or self-care (01) ==
LOC: NEPC 12:38 → NEDA 15:35 → NEPFCDU 16:24
PROVIDERS: ADMIT Hospitalist; ATTEND Hospitalist
DX: R56.9 Unspecified convulsions (principal); I47.0 Re-entry ventricular arrhythmia; F43.22 Adjustment disorder with anxiety; F32.9 Major depressive disorder, single episode, unspecified; F19.10 Other psychoactive substance abuse, uncomplicated; R55 Syncope and collapse; E86.0 Dehydration; N39.0 Urinary tract infection, site not specified; A49.8 Other bacterial infections of unspecified site; F17.210 Nicotine dependence, cigarettes, uncomplicated; F10.10 Alcohol abuse, uncomplicated
CPT/HCPCS: 70450; 72125; 80053; 80307; 81001; 82550; 82948; 83036; 83735; 84100; 84439; 84443; 84484; 84703; 85025; 87077; 87086; 87186; 93005; 93306; 93880; 95819; 96361; 96365; 99285; G0378; J0696; J7030; J1644